=== PATIENT | female | born 1945 | race Caucasian/White ===

== ENCOUNTER 2016-08-04 18:09 | Observation (INO) | payer MEDICARE, OTHER ==
--- NOTE | 2016-08-04 20:03 | RAD ---
INDICATION: Recent right hemorrhagic CVA COMPARISON: MRI brain July 23, 2016 TECHNIQUE: Noncontrast axial source images were acquired from the skull base to the vertex. FINDINGS: Ventricles/sulci: The ventricles and cisterns are normal in size and configuration for age. Brain parenchyma: There is temporoparietal encephalomalacia consistent with the clinical history of prior infarct. There are left-sided lacunar type infarcts. There are no acute brain parenchymal findings. Intracranial hemorrhage:None. Extra-axial spaces: There are no abnormal extra axial fluid collections or evidence of extra-axial mass. Calvarium: Right temporoparietal craniotomy defect. Scalp: There is no evidence of scalp or extracalvarial soft tissue abnormality. Paranasal sinuses/mastoid: The paranasal sinuses and mastoid air cells are clear. Other: None. IMPRESSION: RIGHT TEMPORAL AND PARIETAL ENCEPHALOMALACIA WITH PRIOR RIGHT-SIDED CRANIOTOMY. NO ACUTE CRANIAL FINDINGS.
[2016-08-04] MEDS ORDERED: Dextrose 50% Syringe 50 ML* 25 GM/50 ML SYRINGE IV PUSH PRN (21:56)
--- NOTE | 2016-08-04 22:50 | ED ---
Cale Zacarias Aidan, scribed for Rigo Osborn MD on 08/04/16 at 1935 . Lower Extremity - HPI Summary HPI Summary: 70 y/o female presents to the ED with a complaint of an acute, moderate episode of difficulty walking that occurred just over an hour ago. She believes that she may have suffered from a stroke. On 07/22/16 while on a trip in [place], she had a stroke, during which she could not move her leg. Associated symptoms include right-sided weakness that has persisted for most of today. According to the patient's daughter, she has been speaking with slightly slurred speech. 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 was mentioned Onset/Duration: Minutes Severity Initially: Moderate Severity Currently: Mild Pain Intensity: 0 Pain Scale Used: 0-10 Numeric Timing: Intermittent, Lasting Minutes Location: Is Discrete @ - lower extremity Associated Signs And Symptoms: Positive: Other - right-sided weakness, slightly slurred speech (according to daughter) Aggravating Factor(s): Other - unknown Alleviating Factor(s): Other - unknown Able to Bear Weight: Yes - Allergies/Home Medications Allergies/Adverse Reactions: Allergies Allergy/AdvReac Type Severity Reaction Status Date / Time Cyclophosphamide Allergy Swelling Verified 08/04/16 20:52 [From Cytoxan Lyophilized] prednisone Allergy Swelling Uncoded 08/04/16 20:52 Home Medications: Home Medications Aspirin [Aspirin 81 MG TAB] 81 mg PO DAILY 08/04/16 [History Confirmed 08/04/16] Atorvastatin* [Lipitor*] 20 mg PO 1700 08/04/16 [History Confirmed 08/04/16] Citalopram TAB* [CeleXA TAB*] 20 mg PO DAILY 08/04/16 [History Confirmed ] Cyanocobalamin TAB* [Vitamin B12 TAB*] 1,000 mcg PO DAILY 08/04/16 [History Confirmed 08/04/16] Dipyridamole/Aspirin 25/200* [Aggrenox 25/200*] 1 cap.er PO BID 08/04/16 [ History Confirmed 08/04/16] Esomeprazole Magnesium [Nexium] 40 mg PO DAILY 08/04/16 [History Confirmed 08/04] Furosemide TAB* [Lasix TAB*] 40 mg PO DAILY 08/04/16 [History Confirmed 08/04/16 ] Insulin REGULAR(*) 0 units SUBCUT ONCE 08/04/16 [History Confirmed 08/04/16] Levothyroxine TAB* [Synthroid TAB*] 75 mcg PO 0800 08/04/16 [History Confirmed 08/04/16] Lisinopril TAB* [Prinivil TAB*] 10 mg PO DAILY 08/04/16 [History Confirmed 08/04] Pregabalin CAP(*) [Lyrica CAP(*)] 100 mg PO TID 08/04/16 [History Confirmed ] metFORMIN* [Glucophage 500 MG TAB *] 500 mg PO DAILY 08/04/16 [History Confirmed 08/04/16] PMH/Surg Hx/FS Hx/Imm Hx Infectious Disease History: Reports: Traveled Outside the [place] in Last 30 Days - [place] - Family History Known Family History: Positive: Hypertension - Social History Occupation: Unemployed Lives: With Family Alcohol Use: None Substance Use Type: Reports: None Smoking Status (MU): Never Smoked Tobacco Review of Systems Constitutional: Negative Eyes: Negative ENT: Negative Cardiovascular: Negative Respiratory: Negative Gastrointestinal: Negative Genitourinary: Negative Musculoskeletal: Negative Skin: Negative Neurological: Other - episode of difficulty walking/ possible stroke Positive: Weakness - right-sided weakness, Slurred Speech. Negative: Headache, Paresthesia, Numbness, Syncope Psychological: Normal All Other Systems Reviewed And Are Negative: Yes Physical Exam Triage Information Reviewed: Yes Vital Signs On Initial Exam: Initial Vitals Temp Pulse Resp BP Pulse Ox 97.0 F 48 14 182/57 100 08/04/16 18:36 08/04/16 18:36 08/04/16 18:36 08/04/16 18:36 08/04/16 18:36 Vital Signs Reviewed: Yes Appearance: Positive: Well-Appearing, No Pain Distress Skin: Positive: Warm, Skin Color Reflects Adequate Perfusion, Dry Head/Face: Positive: Normal Head/Face Inspection Eyes: Positive: Normal ENT: Positive: Normal ENT inspection Neck: Positive: Supple, Nontender Respiratory/Lung Sounds: Positive: Clear to Auscultation, Breath Sounds Present Cardiovascular: Positive: RRR Abdomen Description: Positive: Nontender, Soft Bowel Sounds: Positive: Present Musculoskeletal: Positive: Normal Neurological: Positive: Normal, Alert, Oriented to Person Place, Time, CN Intact II-III, Other - the patient is unable to move her right leg Psychiatric: Positive: Affect/Mood Appropriate Diagnostics - Vital Signs Vital Signs Temp Pulse Resp BP Pulse Ox 08/04/16 18:36 97.0 F 48 14 182/57 100 - Laboratory Lab Statement: Any lab studies that have been ordered have been reviewed, and results considered in the medical decision making process. - CT BRAIN CT CT Interpretation: Positive (See Comments) - IMPRESSION: RIGHT TEMPORAL AND PARIETAL ENCEPHALOMALACIA WITH PRIOR RIGHT-SIDED CRANIOTOMY. NO ACUTE CRANIAL FINDINGS. CT Interpretation Completed By: Radiologist - EKG EKG 1848 Cardiac Rate: Bradycardia - 50 BPM EKG Rhythm: Sinus Bradycardia EKG Interpretation: SINUS BRADYCARDIA, LOW VOLTAGE National Institutes Of Health - NIH Scale Level of Consciousness: Alert/Keenly Responsive - Pt was unable to move her right leg Ask Patient the Month and His/Her Age: Both Correct Ask Pt to Open/Close Eyes and Jacquard Lace Weaver/Release Non-Paretic Hand: Both Correctly Best Gaze (Only Horizontal Eye Movement): Normal Visual Field Testing: No Visual Loss Facial Paresis-Pt to Smile & Close Eyes or Grimace Symmetry: Normal/Symmetrical Motor Function - Right Arm: No Drift-Holds 10 Seconds Motor Function - Left Arm: No Drift-Holds 10 Seconds Motor Function - Right Leg: No Effort Against Drake Motor Function - Left Leg: No Drift-Holds 10 Seconds Limb Ataxia-Must be out of Proportion to Weakness Present: Absent Sensory (Use Pinprick to Test Arms/Legs/Trunk/Face): Normal Best Language (Describe Picture, Name Items): No Aphasia Dysarthria (Read Several Words): Normal Extinction and Inattention: No Abnormality Total Score: 3 Lower Extremity Course/Dx - Course Course Of Treatment: This is a 70 y/o female presenting with possible CVA. She had an episode today of difficulty walking and believes that she may have had a stroke. On 07/22/16, she had a stroke while in [place], during witch she could not move her legs. On examination, she was unable to move her right leg. Brain CT did not indicate any acute findings. EKG at 1848 indicated sinus bradycardia. - Diagnoses Provider Diagnoses: CVA (cerebral vascular accident) - Physician Notifications Discussed Care of Patient With: Dr. May (Hospitalist) Time Discussed With Above Provider: 20:30 - Dr. Osborn discussed the patient's care with the hospitalist. Discharge - Discharge Plan Condition: Stable Disposition: ADMITTED TO [facility] documentation as recorded by the Cale cooper Aidan accurately reflects the service I personally performed and the decisions made by , Rigo Osborn MD.
--- NOTE | 2016-08-04 23:02 | CONS ---
INPATIENT PHYSICAL MEDICINE AND REHABILITATION CONSULT NOTE: DATE OF CONSULT: 08/04/16 REASON FOR CONSULT: Left-sided lacunar stroke with right hemiparesis. REFERRING PHYSICIAN: The hospitalist service. HISTORY OF ILLNESS: Rita Witt is a 70-year-old female. She has a medical history significant for a fall, which occurred 10 years ago in which she struck her head. She had to have a craniotomy and evacuation of a hematoma. She apparently had seizures following that. She also has a history of peripheral neuropathy. 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 That is by report. She takes Lyrica for the peripheral neuropathy. The patient was visiting her daughter in [place]. They were touring a cemetery in [place] and when she came out of the cemetery, she said she had trouble moving her right leg. The right leg weakness became more severe. She went to a hospital in [facility]. She was worked up with a CAT scan. She was diagnosed with a subcortical stroke. The patient's symptoms stabilized after worsening for 1 to 2 days. It was recommended that the patient take Aggrenox twice a day after discharge. The patient was cleared to fly back home to [facility] on 07/31/16. Apparently, she boarded an airplane on 08/02/16 and got back to [place] today. She presented to our emergency room where she was admitted for OBV status. She did have a CAT scan in the emergency room because she was complaining of severe headache. No new intracranial pathology was detected. I am asked to see her in consultation regarding her rehab needs. PAST MEDICAL HISTORY: Includes the aforementioned traumatic brain injury with subdural hematoma. She has a history of hypothyroidism, peripheral neuropathy, which is thought to be a large fiber neuropathy. She has memory problems as a result of her head injury. She had a colostomy in 2007. She has a history of diabetes as well. The diabetes could very well be the cause of her neuropathy. CURRENT MEDICATIONS: Include: 1. Aggrenox. 2. Lipitor. 3. L-Thyroxine. 4. Metformin. 5. She is on vitamin B12. 6. Insulin. 7. Lisinopril. 8. Lyrica. 9. Celexa. 10. Nexium. ALLERGIES: She is allergic to CYTOXAN and PREDNISONE. SOCIAL HISTORY: She is a nonsmoker, nondrinker. She lives by herself. She lives in a house. There is a ramp outside the house. She does have a daughter living locally. REVIEW OF SYSTEMS: The patient reports no current shortness of breath or chest pain. PHYSICAL EXAM: The patient's temperature is 96.7, blood pressure is 179/69, pulse 52, respirations 18. HEENT: She has a right facial palsy. Her tongue appears to be midline. She does have dysarthria present. Her neck is supple with no lymphadenopathy. Lungs: Sounded clear to auscultation bilaterally. Heart: Sounds regular. S1 and S2 are audible. Abdomen: Soft and nontender. Extremities: She may have had slight atrophy in her intrinsic muscles of her feet. Neurologic Exam: The patient sensation was diminished particularly in her feet. Her muscle strength was about 4+/5 on the left side, about 4/5 on the right side that was the upper extremity. Hand manager asset management was about 3/5, dorsiflexion in the right leg was about 2+/5, hip flexion 3/5, quadriceps about 3/5. Hamstrings were roughly 3/5, plantarflexion 3/5. Functional Exam: The patient transfers with moderate amount of assistance. ASSESSMENT: Lacunar stroke with right hemiparesis. PLAN: I believe the patient would benefit from an acute rehabilitation. She has clear needs in Physical Therapy, Occupational Therapy, and Speech Therapy. She is able to do 3 hours of therapy a day. In addition, her medical comorbidities including a previous hemorrhage in her brain as well as a peripheral neuropathy require ongoing medical supervision. In addition, she has a history of pernicious anemia, which may also be contributing to her neuropathy. She has a history of seizures in the past and I think this also requires ongoing monitoring by a physician. Therefore, I recommended acute rehabilitation. She would benefit from and be able to participate in 3 hours of therapy a day split among the disciplines of Physical Therapy, Occupational Therapy, and Speech Therapy. [id number]/[facility] #: [id number] [place]
[2016-08-05] MEDS ORDERED: Acetaminophen TAB* 325 MG PO PRN (00:19)
[2016-08-05] MEDS ORDERED: hydrALAZINE IV* 20 MG/ML VIAL IV SLOW PU PRN (00:40)
--- NOTE | 2016-08-05 02:45 | HP ---
HISTORY AND PHYSICAL: DATE OF ADMISSION: 08/04/16 PRIMARY CARE PROVIDER: Jozef Og MD ATTENDING PHYSICIAN: Rachel May DO* (report dictated by Sofi Adorno NP) CHIEF COMPLAINT: Headache post cerebrovascular accident. HISTORY OF PRESENT ILLNESS: Ms. Witt is a 70-year-old female with past medical history significant for traumatic what sounds like subdural hematoma status post craniotomy, seizure disorder following the head injury, peripheral neuropathy, hypothyroidism, and Renetta granulomatosis, and diabetes mellitus, who was visiting her daughter in [place]. Two days after the patient arrived, she was on a tour, she developed right leg weakness, seen in the hospital in [facility]. She underwent a CT scan with a diagnosis of left subcortical cerebrovascular accident. This occurred on 07/22/16. The patient was cleared to fly back home to the on 07/31/16. The patient got on a plane and arrived back via plane in [place] today. The patient states that while on the flight, she developed a headache. She reports that her right-sided weakness is her baseline that has been since her stroke. She reports taking Tylenol prior to her arrival and that headache is gone. Her son reports that the patient may have had slurred speech in flight, but the patient's family is not here to confirm this. The patient denies any changes in her neurological status. While in the emergency room, the patient had a head CT showing a right temporal and parietal encephalomalacia with prior right-sided craniotomy. No acute cranial findings. The patient also had an EKG showing a sinus bradycardia and a rate of 50 and there is no previous EKGs for comparison. The patient denies fever, chills, chest pain, shortness of breath, nausea, vomiting, or diarrhea. She denies urinary symptoms, lightheadedness, or dizziness. The patient denies any changes in her neurological symptoms such as increased weakness or slurred speech. PAST MEDICAL HISTORY: 1. Left subcortical stroke on 07/23/16. 2. Hypertension. 3. Diabetes mellitus. 4. Peripheral neuropathy. 5. Hemorrhagic subdural hematoma. 6. Diverticulitis. 7. Seizure disorder after subdural hematoma. PAST SURGICAL HISTORY: 1. Status post craniotomy. 2. Status post right total hip arthroplasty. 3. Status post colostomy placement. MEDICATIONS: Home medications include: 1. Aggrenox 25/200 mg 1 capsule oral twice daily. 2. Atorvastatin 20 mg oral daily. 3. L-thyroxine 75 mcg oral daily. 4. Metformin 500 mg oral daily. 5. Vitamin B12 1000 mcg oral daily. 6. Regular insulin 1 to 10 subcutaneous. 7. Furosemide 40 mg oral daily. 8. Lisinopril 10 mg oral daily. 9. Nexium 40 mg oral daily. 10. Citalopram 20 mg oral daily. 11. Lyrica 100 mg oral 3 times daily. ALLERGIES: Include PREDNISONE causes swelling and CYCLOPHOSPHAMIDE. FAMILY HISTORY: The patient reports her mother had a history of heart disease. She denies family history of diabetes mellitus. The patient's father had a history of colon cancer. SOCIAL HISTORY: The patient denies tobacco, alcohol, or recreational drug use. The patient's , Jozef Witt, will be surrogate decision maker in the event that she is unable to make decisions for herself. REVIEW OF SYSTEMS: I performed a 14-point review of systems. All the pertinent positives and negatives are mentioned in the history of present illness. The remaining review of systems is negative. PHYSICAL EXAMINATION GENERAL APPEARANCE: The patient is alert, pleasant, and appears to be in no acute distress. VITAL SIGNS: Temperature 96.7, heart rate 52, respiratory rate 18, O2 sat 97% on room air, and blood pressure 179/69. HEENT: Normocephalic, atraumatic. Pupils are equal and reactive to light. Extraocular movements are intact. RESPIRATORY: There is no accessory muscle use and the lungs are clear to auscultation bilateral. CARDIOVASCULAR: Regular rate and rhythm. S1 and S2 present. There are no murmurs, rubs, or gallops heard. ABDOMEN: Soft, nontender, and nondistended. There are bowel sounds present x4. EXTREMITIES: There is no lower extremity edema. DP and PT pulses are 2+ and symmetric. MUSCULOSKELETAL: There is no clubbing or cyanosis noted. The patient has equal handgrips, bilateral. The patient is unable to lift her right leg, but has strong dorsiflexion and plantar flexion bilateral. The patient is noted to have a slight right-sided facial droop. The patient has decreased sensation in bilateral lower extremities. NEUROLOGICAL: The patient is alert and oriented x4. Cranial nerves II through XII are grossly intact. PSYCHOLOGICAL: The patient is calm and cooperative. SKIN: There are no rashes or abnormalities seen. DIAGNOSTIC STUDIES/LAB DATA: EKG shows a sinus bradycardia and a rate of 50. There are no previous EKGs for comparison. There are no acute signs of ischemia. Brain CT from today. Radiologist's impression: Right temporal and parietal encephalomalacia with prior right-sided craniotomy. No acute cranial findings. IMPRESSION: Ms. Witt is a 70-year-old female with past medical history significant for history of subdural hematoma status post craniotomy and seizures post craniotomy, hypertension, diabetes mellitus, and status post left subcortical CVA on July 23 who presented to the emergency room with complaints of headache post stroke. She will be admitted under observation for post cerebrovascular accident and accelerated hypertension. ASSESSMENT AND PLAN: 1. Post cerebrovascular accident: The patient will have a physical therapy and occupational therapy evaluation. We will do neuro checks q.4 hours. The patient is almost 2 weeks post stroke. I do not feel she needs to be monitored on telemetry at this time. She will be continued on Aggrenox and hopefully, she can get into an acute or subacute rehab. 2. Accelerated hypertension: It appears that since the patient was in [facility] , she has been on 10 mg of lisinopril and 40 mg of furosemide. We will increase the patient's lisinopril to 20 mg daily. It is to note that it appears that the patient was on atenolol 100 mg oral daily. We will get the patient's medical records to confirm with her primary care doctor what her medications were prior to her visit to [facility]. 3. Hyperlipidemia: The patient will be continued on atorvastatin. 4. Hypothyroidism: The patient will be continued on levothyroxine. 5. Gastroesophageal reflux disease: For now, we will continue the patient on Nexium, although it appears that she may have been on omeprazole 20 mg oral twice daily. Again, we will get her primary care records to assist us in determining some of her correct medications. 6. Diabetes mellitus: We will hold the patient's metformin. We will do fingersticks a.c. and h.s. and place her on a lispro sliding scale coverage for now. 7. Seizure disorder: The patient is not currently on medications and they are not listed on med list from [facility]. It appears according to pharmacy records that the patient was on Keppra 500 mg twice daily. Again, we will get the patient's medical records and resume accordingly. 8. Fluids, electrolytes, and nutrition: The patient will be on a consistent carbohydrate diet. 9. Code status: Do not resuscitate. A MOLST form has been filled out. 10. DVT prophylaxis: The patient is at highest risk, will be on subcu heparin and SCDs. 11. Disposition: Observation. TIME SPENT: Time for this admission was 70 minutes and approximately half of that was spent with the patient, discussing medications, past medical history, and the events leading up to her today and performing a physical examination. Additional time was also spent reviewing the patient's medical records from [facility]. The case has been discussed with the attending, Dr. May, who agrees with the plan of care. SOFI ADORNO NP CC: Jozef Og MD * [id number]/[facility] #: [id number] [place]
[2016-08-05] MEDS: Heparin VIAL(*) 5000 UNITS/ML VIAL (FIVE THOUSAND) SUBCUT SCH ×2 (05:25→14:47)
[2016-08-05] MEDS ORDERED: Levothyroxine TAB* 75 MCG TAB PO SCH (06:00)
[2016-08-05] MEDS: Pregabalin CAP(*) 100 MG PO SCH ×2 (07:48→14:47)
[2016-08-05] MEDS: Insulin LISPRO* 1 UNITS UNIT SUBCUT SCH ×2 (07:49→12:13)
[2016-08-05] MEDS ORDERED: Dipyridamole/Aspirin 25/200* CAP.ER PO SCH (09:00)
[2016-08-05] MEDS ORDERED: Cyanocobalamin TAB* 500 MCG PO SCH (09:00)
[2016-08-05] MEDS ORDERED: Lisinopril TAB* 10 MG PO SCH (09:00)
[2016-08-05] MEDS ORDERED: Furosemide TAB* 40 MG PO SCH (09:00)
[2016-08-05] MEDS ORDERED: Citalopram TAB* 20 MG PO SCH (09:00)
[2016-08-05 12:14] VITALS: BP 170/76
--- NOTE | 2016-08-05 13:19 | PN ---
Subjective Date of Service: 08/05/16 Interval History: Patient seen and examined at bedside. She is OOB to chair. She denies CP, SOB, abd pain, n/v, fever/chills. She reports a mild BUNN. She reports that her speech and right arm weakness feels the same. She is eager to go to [facility] so she can get back home. No other acute concerns at this time. Family History: Unchanged from Admission Social History: Unchanged from Admission Past Medical History: Unchanged from Admission Objective Active Medications: Acetaminophen (Tylenol Tab*) 650 mg PO Q4H PRN PRN Reason: PAIN Atorvastatin Calcium (Lipitor*) 20 mg PO 1700 [facility] Citalopram Hydrobromide (Celexa Tab*) 20 mg PO DAILY [facility] Last Admin: 08/05/16 07:47 Dose: 20 mg Cyanocobalamin (Vitamin B12 Tab*) 1,000 mcg PO DAILY [facility] Last Admin: 08/05/16 07:48 Dose: 1,000 mcg Dextrose (D50w Syringe 50 Ml*) 12.5 gm IV PUSH .FOR FS < 60 - SS PRN PRN Reason: FS < 60 Dipyridamole/Aspirin (Aggrenox 25/200*) 1 cap.er PO BID [facility] Last Admin: 08/05/16 07:48 Dose: 1 cap.er Furosemide (Lasix Tab*) 40 mg PO DAILY [facility] Last Admin: 08/05/16 07:48 Dose: 40 mg Heparin Sodium (Porcine) (Heparin Vial(*)) 5,000 units SUBCUT Q8HR [facility] Last Admin: 08/05/16 05:25 Dose: 5,000 units Hydralazine HCl (Apresoline Iv*) 5 mg IV SLOW PU Q6H PRN PRN Reason: BLOOD PRESSURE Last Admin: 08/05/16 07:46 Dose: 5 mg Insulin Human Lispro (Humalog*) 0 - 10 units SUBCUT AC [facility] PRN Reason: Protocol Last Admin: 08/05/16 12:13 Dose: Not Given Levothyroxine Sodium (Synthroid Tab*) 75 mcg PO 0600 [facility] Last Admin: 08/05/16 05:25 Dose: 75 mcg Lisinopril (Prinivil Tab*) 20 mg PO DAILY [facility] Last Admin: 08/05/16 07:48 Dose: 20 mg Pregabalin (Lyrica Cap(*)) 100 mg PO TID JANUARY Last Admin: 08/05/16 07:48 Dose: 100 mg Vital Signs 08/04/16 08/04/16 08/04/16 21:30 22:00 22:30 Temperature Pulse Rate 54 49 51 Respiratory 14 15 15 Rate Blood Pressure 185/63 171/55 154/55 (mmHg) O2 Sat by Pulse 97 95 93 Oximetry 08/04/16 08/05/16 08/05/16 23:20 03:49 07:19 Temperature 97.4 F 97.8 F 97.7 F Pulse Rate 54 91 70 Respiratory 17 16 16 Rate Blood Pressure 168/47 155/96 187/70 (mmHg) O2 Sat by Pulse 100 97 99 Oximetry 08/05/16 08/05/16 08/05/16 07:48 08:00 09:48 Temperature Pulse Rate Respiratory 16 16 16 Rate Blood Pressure (mmHg) O2 Sat by Pulse Oximetry 08/05/16 08/05/16 11:01 12:00 Temperature 98.1 F Pulse Rate 70 Respiratory 14 Rate Blood Pressure 138/79 170/76 (mmHg) O2 Sat by Pulse 100 Oximetry Oxygen Devices in Use Now: None Appearance: Older female, OOB to chair, NAD Eyes: PERRLA Ears/Nose/Mouth/Throat: Mucous Membranes Moist Neck: NL Appearance and Movements; NL JVP Respiratory: Symmetrical Chest Expansion and Respiratory Effort, Clear to Auscultation Cardiovascular: NL Sounds; No Murmurs; No JVD, RRR Abdominal: NL Sounds; No Tenderness; No Distention Extremities: - - trace BLE edema Neurological: Alert and Oriented x 3, - - right facial droop, right sided hemiparesis Lines/Tubes/Other Access: Clean, Dry and Intact Peripheral IV Nutrition: Taking PO's Assess/Plan/Problems-Billing Assessment: - Patient Problems (1) CVA (cerebral vascular accident) Code(s): I63.9 - CEREBRAL INFARCTION, UNSPECIFIED Comment: Patient s/p left subcortical CVA on 07/23/16 while on vacation in [place]. With residual right hemiparesis Continue BP control and Aggrenox. Plan for [facility], pending insurance approval. (2) HTN (hypertension) Code(s): I10 - ESSENTIAL (PRIMARY) HYPERTENSION Comment: Manual BP needed for best reads. Patient's BP is variable, with SBP ranging from 130s-180s Continue home atenolol, lisinopril, and furosemide. PRN hydralazine (3) Diabetes mellitus Code(s): E11.9 - TYPE 2 DIABETES MELLITUS WITHOUT COMPLICATIONS Comment: Well controlled. Home metformin held. Continue Lispro SSI. (4) Peripheral neuropathy Code(s): G62.9 - POLYNEUROPATHY, UNSPECIFIED Comment: Continue pregabalin. (5) History of subdural hematoma Code(s): Z86.79 - PERSONAL HISTORY OF OTHER DISEASES OF THE CIRCULATORY SYSTEM Comment: s/p craniotomy (6) Seizure disorder Code(s): G40.909 - EPILEPSY, UNSP, NOT INTRACTABLE, WITHOUT STATUS EPILEPTICUS Comment: Appears secondary to subdural hematoma and craniotomy. Continue home Keppra. (7) DVT prophylaxis Code(s): XGO8364 - Comment: SQ heparin Status and Disposition: OBV admit. Possible transfer to [facility] today.
[2016-08-05] MEDS ORDERED: levETIRAcetam TAB* 500 MG PO SCH (14:18)
[2016-08-05] MEDS ORDERED: Atenolol TAB* 50 MG PO SCH (14:30)
[2016-08-05] MEDS ORDERED: Atorvastatin* 20 MG TAB PO SCH (17:00)
--- NOTE | 2016-08-06 14:51 | DS ---
MEDICINE DISCHARGE SUMMARY: DATE OF ADMISSION: 08/04/16 DATE OF DISCHARGE: 08/05/16 PCP: Jozef Og MD PROVIDER: Heather Solano NP ATTENDING PHYSICIAN: Isha Cavazos MD* (as dictated by Heather Solano NP). CONSULTING PHYSICIAN: Marco Tucker MD, [facility]. PRIMARY DISCHARGE DIAGNOSES: 1. Postcerebrovascular accident. 2. Hypertension. SECONDARY DISCHARGE DIAGNOSES: 1. History of left subcortical stroke on 07/23/16. 2. Diabetes mellitus. 3. Peripheral neuropathy. 4. Hemorrhagic subdural hematoma. 5. Diverticulitis. 6. Seizure disorder after subdural hematoma. MEDICATIONS AT DISCHARGE: 1. Keppra 500 mg b.i.d. 2. Atenolol 100 mg daily. 3. Regular insulin sliding scale. 4. Lyrica 100 mg t.i.d. 5. Lisinopril 10 mg daily, now increased to 20 mg daily. 6. Furosemide 40 mg daily. 7. Vitamin B12 1000 mcg daily. 8. Celexa 20 mg daily. 9. Nexium 40 mg daily. 10. Aggrenox 25/200 one capsule b.i.d. 11. Lipitor 20 mg daily. 12. Aspirin 81 mg daily. HOSPITAL COURSE OF STAY: For full details, please refer to the full medical record in the H and P provided by Shama Vazquez NP. In summary, Ms. Witt is a 70-year-old female who was recently in [place] earlier this July. On 07/22/16, the patient was on a tour and developed right leg weakness and was seen in the hospital in [place]. She was evaluated and treated in the hospital there and underwent a CT scan and was diagnosed with a left subcortical cerebrovascular accident on 07/22/16. The patient stayed in [place] and was cleared to fly back home to the [facility] on 07/31/16. She traveled back to [place] shortly thereafter on 08/03/16 and got back to [place] on 08/04/16. While on the flight, the patient developed a headache. The patient's son expressed concern for slurred speech in flight. They came to the hospital for further evaluation. The patient did have a head CT here in the ER, which showed a right temporal and parietal encephalomalacia with prior right-sided craniotomy. The patient also showed left-sided lacunar infarct. Her EKG showed a sinus bradycardia. The patient was admitted for observation and received a PT and OT evaluation. Dr. Tucker saw the patient in consultation as well. He did express that the patient would benefit from acute rehab and recommended the patient start PT and OT here in the hospital with a plan for a potential admission to [facility]. During her time upon the medicine floor, the patient was able to transfer with the staff. She is motivated to continue with these therapies in order to recover and return back home. She had no new complaints except for a mild headache when she awoke on 08/05/16. She reports no worsening or new deficits. Her blood pressures are still a little labile, thus concern for pressures in the 170s to 180s. However, there is notable difference between the patient's manual versus automatic blood pressures. Nursing staff was encouraged to take manual blood pressures. We did call the pharmacy to confirm the patient's medications. She is to be on Keppra, which we did reinitiate here as well as her atenolol which should help with her blood pressure control. No other acute concerns. CONCERNS AT DISCHARGE: Ms. Witt will be discharged to [facility] on 08/05/16. DIET: Heart healthy, consistent carbohydrate diet. ACTIVITY: As tolerated. CONDITION: Stable. DISPOSITION: To [facility]. TIME SPENT: Time spent on this discharge was approximately 40 minutes. Again, this is only a brief summary of the patient's hospital course of stay. For full details, please refer to the full medical record. If you have any further questions or need further assistance, please feel free to contact me at . HEATHER SOLANO NP CC: Jozef Og MD* [id number]/[facility] #: [id number] LEONIDAS
== END 2016-08-05 14:50 ==
LOC: ED 18:09 → MEDTELE 21:09 → UNDOADMOB 21:47 → MEDTELE 21:47
PROVIDERS: ADMIT Hospitalist; ATTEND Internal Medicine
DX: I63.9 Cerebral infarction, unspecified (principal); G81.91 Hemiplegia, unspecified affecting right dominant side; I10 Essential (primary) hypertension; E11.9 Type 2 diabetes mellitus without complications; G62.9 Polyneuropathy, unspecified; G40.909 Epilepsy, unspecified, not intractable, without status epilepticus; K21.9 Gastro-esophageal reflux disease without esophagitis; E03.9 Hypothyroidism, unspecified; R00.1 Bradycardia, unspecified; Z79.4 Long term (current) use of insulin; Z79.84 Long term (current) use of oral hypoglycemic drugs; Z79.899 Other long term (current) drug therapy; Z88.8 Allergy status to other drugs, medicaments and biological substances
CPT/HCPCS: 70450; 93005; 96372; 99283; A9270-GY; G0378; G8978-GP-CL; G8979-GP-CI; G8980-GP-CL; G8987-GO-CL; G8988-GO-CI; J0360; J1644

== ENCOUNTER 2016-08-05 13:05 | Inpatient (IN) | payer MEDICARE ==
[2016-08-05] MEDS ORDERED: Acetaminophen TAB* 325 MG PO PRN (16:34)
[2016-08-05] MEDS ORDERED: Senna TAB PO PRN (16:34)
[2016-08-05] MEDS ORDERED: Magnesium Hydroxide LIQ* 30 ML UDC PO PRN (16:34)
[2016-08-05] MEDS ORDERED: Bisacodyl SUPP* 10 MG SUPP PR PRN (16:34)
[2016-08-05] MEDS ORDERED: Dextrose 50% Syringe 50 ML* 25 GM/50 ML SYRINGE IV PUSH PRN (16:45)
[2016-08-05] MEDS: metFORMIN* 500 MG TAB PO SCH (17:10)
[2016-08-05] MEDS: Atorvastatin* 20 MG TAB PO SCH (17:10)
[2016-08-05] MEDS: Pregabalin CAP(*) 50 MG PO SCH (20:37)
[2016-08-05] MEDS: Docusate CAP* 100 MG PO SCH (20:37)
[2016-08-05] MEDS: Insulin LISPRO* 1 UNITS UNIT SUBCUT SCH (20:38)
[2016-08-05] MEDS: Dipyridamole/Aspirin 25/200* CAP.ER PO SCH (20:38)
[2016-08-05] MEDS ORDERED: Insulin LISPRO* 1 UNITS UNIT SUBCUT SCH (21:00)
[2016-08-05] MEDS: Heparin VIAL(*) 5000 UNITS/ML VIAL (FIVE THOUSAND) SUBCUT SCH (22:22)
--- NOTE | 2016-08-06 03:25 | HP ---
ADMISSION HISTORY AND PHYSICAL: DATE OF ADMISSION: 08/05/16 REASON FOR ADMISSION: Left-sided stroke with right hemiparesis. HISTORY OF PRESENT ILLNESS: Rita Witt is a 70-year-old female. The patient has a medical history significant for diabetes mellitus as well as having peripheral neuropathy, which is secondary to previous heavy alcohol use and diabetes. Hypothyroidism probably contributes as well. In addition, the patient had a fall 10 year ago. She struck her head and had to have a craniotomy and evacuation of a hematoma. She has had difficulties with her balance since that time. The patient was visiting her daughter in [place]. They were touring a cemetery in [place]. When the patient ambulated out of the cemetery, she had trouble moving her right leg. The right leg weakness progressed. She went to a hospital in [facility]. She had a workup at the hospital including a CAT scan. She was diagnosed with a subcortical stroke. The patient's symptoms stabilized after worsening for 1 to 2 days. The patient was started on Aggrenox secondary to stroke prevention. She boarded an airplane on August 02 after having had the stroke on July 23. She returned to [place] and she was seen in the emergency room last night. She was admitted as an OBV patient. She was having a severe headache. A CAT scan of her brain did not reveal any new findings. The date of her stroke again was 07/23/16. The patient was evaluated by me last night. She was felt to have Physical Therapy, Occupational Therapy needs as well as Speech Therapy needs. She is now being admitted for inpatient rehab so that she might return to independent living. PAST MEDICAL HISTORY: Includes the aforementioned diabetes, peripheral neuropathy, hypothyroidism, and brain injury. She also has a history of osteoporosis, pernicious anemia, and hypertension. As mentioned earlier, she is also a recovering alcoholic. MEDICATIONS: The patient's current medications include: 1. Lipitor. 2. Celexa. 3. Aggrenox. 4. Lasix. 5. Lispro insulin. 6. Synthroid. 7. Lisinopril. 8. Lyrica. ALLERGIES: The patient has allergies listed to CYCLOPHOSPHAMIDE and PREDNISONE. SOCIAL HISTORY: She is a nonsmoker, nondrinker. Lives with her in a split story ranch house in [place]. She does have an electric wheelchair at home, which she got after her brain injury and had balance difficulties. She was ambulatory prior to admission. REVIEW OF SYSTEMS: The patient reports no current shortness of breath or chest pain. PHYSICAL EXAMINATION VITAL SIGNS: The patient's temperature is 98.1, blood pressure is 154/62, pulse 64, respirations 16. HEENT: Her extraocular movements appear to be intact. She has a right facial palsy. She has a dysarthria when she speaks. NECK: Supple. LUNGS: Sounded clear to auscultation bilaterally. HEART: Sounds are regular. S1, S2 are audible. ABDOMEN: Soft and nontender. EXTREMITIES: She had slightly decreased tone in her right arm and right leg. Her peripheral pulses were intact. NEUROLOGIC: The patient was awake, alert, oriented. Muscle strength in the right side, her right arm was grossly 3/5. 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 Her right leg, hip flexion was about 3/5, quadriceps 3/5, hamstrings 3/5, plantar flexion 3/5, dorsiflexion about 2/5. Left side was roughly 4+ to 5/5 throughout. FUNCTIONAL EXAM: She transfers with moderate amount of assistance. ASSESSMENT: Lacunar stroke with right hemiparesis. PLAN: We are going to integrate her into a comprehensive and therapeutic rehab program on the following goals: 1. Physical Therapy will work with the patient. They are going to work on functional transfer training and ambulation training with a walker. 2. Occupational Therapy will see the patient and work on her activities of daily living including toileting and toilet transfers. 3. Speech Therapy will see the patient. Work on her dysarthria. 4. Heparin for DVT prophylaxis. 5. Continue Synthroid for hypothyroidism. 6. We will continue lisinopril for her blood pressure problems. 7. Continue Aggrenox and Lipitor for secondary stroke prevention. 8. Continue Lyrica for peripheral neuropathy. 9. guest services representative will be closely involved to make sure that any services and equipment that the patient requires are in place prior to discharge. 10. For diabetes, we are going to continue fingersticks with appropriate insulin coverage. We are going to restart her Glucophage. 11. SSRI's - she is already on Celexa. We may switch her over to Prozac. 12. Family training as appropriate with stroke education. 13. Advance directives: The patient has requested DNR status. She does have a MOLST form. 14. Continue the patient on omeprazole. 15. Home with appropriate services. ESTIMATED LENGTH OF STAY: 3 weeks. [id number]/[facility] #: [id number] LEONIDAS
[2016-08-06] MEDS: Levothyroxine TAB* 75 MCG TAB PO SCH (05:21)
[2016-08-06] MEDS: Omeprazole CAP* 20 MG PO SCH (05:21)
[2016-08-06] MEDS: Heparin VIAL(*) 5000 UNITS/ML VIAL (FIVE THOUSAND) SUBCUT SCH ×3 (05:30→21:44)
[2016-08-06] MEDS: Insulin LISPRO* 1 UNITS UNIT SUBCUT SCH ×4 (08:23→20:14)
[2016-08-06] MEDS: Pregabalin CAP(*) 50 MG PO SCH ×3 (09:32→20:08)
[2016-08-06] MEDS: Lisinopril TAB* 10 MG PO SCH (09:33)
[2016-08-06] MEDS: Furosemide TAB* 40 MG PO SCH (09:33)
[2016-08-06] MEDS: Citalopram TAB* 20 MG PO SCH (09:34)
[2016-08-06] MEDS: Docusate CAP* 100 MG PO SCH ×2 (09:34→20:09)
[2016-08-06] MEDS: Cyanocobalamin TAB* 500 MCG PO SCH (09:34)
[2016-08-06] MEDS: Dipyridamole/Aspirin 25/200* CAP.ER PO SCH ×2 (09:34→20:08)
--- NOTE | 2016-08-06 12:39 | PMRUTEAM ---
PMRU: Goals Current Status: Nursing: Current Status Skin Deviations [Right Abdomen Bruise ] Skin Deviation Description [ Colonostomy Right Abdomen] Physical Therapy: Current Status Bed Mobility Assistance Independent Transfer Moblility Assistance Contact guard Ambulation Assistance Contact guard 25 feet Ambulation Assistive Devices Rolling Walker Stairs Assistance Independent Stairs Recommended Devices Two Rails Number of Stairs 6 Social Work: Current Status Discharge Plan reutnr home with home care svs and family support Potential for Family Training pt's family is involved and supportive Anticipated Discharge Home Destination Discharge With home care svs and family support Nutrition: Current Status Monitoring new adm. Goals TBD. OCCUPATIONAL THERAPY: Set up UB dressing, Lower body dressing Min assist. CG Bathing. Toileting : CG. Toilet transfers: CG SPEECH THERAPY: 100% intelligible. Comprehension good. STM deficits which predate her CVA. Goals: Nutrition: Goals Intervention Goals TBD Speech: Goals Speech Goal 1 N/A evaluation only Goal 1 Comments Education: The patient was educated on memory strategies to assist with baseline memory deficits for which the patient stated and demonstrated use of 2 strategies independently which she used at home prior to hospitalization. The patient was educated on 2 additional strategies and demonstrated understanding and use. Written copy of memory strategies presented and left bedside for patient to refer to as needed. No skilled AD TRAFFICKER services warranted at this time. Social Work: Goals Discharge Plan reutnr home with home care svs and family support Potential for Family Training pt's family is involved and supportive Anticipated Discharge Home Destination Discharge With home care svs and family support Care Plan: Care Plan Cardiovascular- Improve/Maintain Start: 08/05/16 23:40 Freq: DAILY Status: Active Target: Activity Type Activity Date Activity User E-Sign Co-Sign Detail Recorded Client Recorded Date Recorded By Document 08/06/16 04:01 [id number] 08/06/16 04:02 [id number] 08/06/16 04:01 [facility] Outcome: Cardiovascular Vital Signs q Shift for 48hrs Then BID Yes Daily Weight Ordered No Current Cardiovascular Outcome/Goal Maintain/ Achieve Baseline HR, BP , Perfusion Free of Abnormal Cardiac Symptoms Communication-Improve/Maintain Start: 08/06/16 12:01 Freq: DAILY Status: Active Target: Activity Type Activity Date Activity User E-Sign Co-Sign Detail Recorded Client Recorded Date Recorded By Document 08/06/16 12:01 [id number] 08/06/16 12:04 [id number] 08/06/16 12:01 [facility] Outcome: Communication/Cognitive Status Outcome/Goals Makes Needs Known Effectively Outcome/Goals Met Comment Speech,language and cognitive- linguistic evaluation completed - The patients speech and language were unremarkable. The patient presented with baseline short term memory deficits from fall 10 years prior with subdural hematoma s/p craniotomy with evacuation. DVT Prophylaxis- Improve/Maintain Start: 08/05/16 23:40 Freq: DAILY Status: Active Target: Activity Type Activity Date Activity User E-Sign Co-Sign Detail Recorded Client Recorded Date Recorded By Document 08/06/16 04:01 [id number] 08/06/16 04:02 [id number] 08/06/16 04:01 [facility] Outcome: DVT Prophylaxis Outcome/Goals Remains Free of DVT TEDS Stockings on Every AM, Off at HS Discharge Planning - Improve/Maintain Start: 08/05/16 23:40 Freq: DAILY Status: Active Target: Activity Type Activity Date Activity User E-Sign Co-Sign Detail Recorded Client Recorded Date Recorded By Document 08/06/16 04:01 [id number] 08/06/16 04:02 [id number] 08/06/16 04:01 [facility] Outcome: Discharge Planning Outcome/Goals Demonstrates Understanding of Discharge Plan /GI-Improve/Maintain Start: 08/05/16 23:40 Freq: DAILY Status: Active Target: Activity Type Activity Date Activity User E-Sign Co-Sign Detail Recorded Client Recorded Date Recorded By Document 08/06/16 04:01 [id number] 08/06/16 04:02 [id number] 08/06/16 04:01 [facility] Outcome: Genitourinary/ Gastrointestinal Genitourinary- Outcome/Goals Maintain/ Achieve Urinary Continence Maintain/ Achieve Adequate Urinary Output Remain Free of Hospital- Acquired UTI Gastrointestinal-Outcome/Goals Maintain/ Achieve Bowel Regularity in Accordance with Pt's Baseline Remain Free of Emesis Prevent Constipation Progression Toward Outcome/Goals - Progressing Safety- Improve/Maintain Start: 08/05/16 23:40 Freq: DAILY Status: Active Target: Activity Type Activity Date Activity User E-Sign Co-Sign Detail Recorded Client Recorded Date Recorded By Document 08/06/16 04:01 [id number] 08/06/16 04:02 [id number] 08/06/16 04:01 [facility] Outcome: Safety Outcome/Goals Remain Free of Injury or Harm Cooperates with Safety Measures for Least Restrictive Environment Prevent Falls/ Injury Equipment Needed Progression Toward Outcome/Goals Progressing Outcome/Goals Met Comment PA in place Medicine Note: Length of Stay: 8 days Anticipated Discharge Destination: Home Tentative Discharge Date: 08/14/16 Discharged to: Home
[2016-08-06] MEDS: metFORMIN* 500 MG TAB PO SCH (17:25)
[2016-08-06] MEDS: Atorvastatin* 20 MG TAB PO SCH (17:25)
[2016-08-07] MEDS: Levothyroxine TAB* 75 MCG TAB PO SCH (04:53)
[2016-08-07] MEDS: Omeprazole CAP* 20 MG PO SCH (04:53)
[2016-08-07] MEDS: Heparin VIAL(*) 5000 UNITS/ML VIAL (FIVE THOUSAND) SUBCUT SCH ×3 (04:55→21:19)
[2016-08-07 06:36] LABS: Hematocrit 34 % (35-47); Mean Corpuscular HGB Conc 33 g/dl (31-36); Mean Corpuscular Hemoglobin 27 pg (27-31); Mean Corpuscular Volume 82 fL (80-97); Mean Platelet Volume 9 um3 (7.4-10.4); Red Blood Count 4.14 10^6/ul (4.0-5.4); Red Cell Distribution Width 15 % (10.5-15); White Blood Count 4.4 10^3/ul (3.5-10.8)
[2016-08-07 06:51] LABS: Albumin 3.2 g/dL (3.2-5.2); BUN/Creatinine Ratio 16.4 (8-20); Calcium 8.6 mg/dL (8.6-10.3); EGFR African American 124.7 (>60); Globulin 2.2 g/dL (2-4); Potassium 2.9 mmol/L (3.5-5.0); Total Bilirubin 0.5 mg/dL (0.2-1.0); Total Protein 5.4 g/dL (6.4-8.9)
[2016-08-07] MEDS: Insulin LISPRO* 1 UNITS UNIT SUBCUT SCH ×3 (08:31→19:09)
[2016-08-07] MEDS: Lisinopril TAB* 10 MG PO SCH (08:56)
[2016-08-07] MEDS: Pregabalin CAP(*) 50 MG PO SCH ×3 (08:56→21:18)
[2016-08-07] MEDS: Furosemide TAB* 40 MG PO SCH (08:57)
[2016-08-07] MEDS: Docusate CAP* 100 MG PO SCH ×2 (08:57→21:19)
[2016-08-07] MEDS: Citalopram TAB* 20 MG PO SCH (08:57)
[2016-08-07] MEDS: Dipyridamole/Aspirin 25/200* CAP.ER PO SCH ×2 (08:57→21:19)
[2016-08-07] MEDS: Cyanocobalamin TAB* 500 MCG PO SCH (08:57)
[2016-08-07] MEDS: metFORMIN* 500 MG TAB PO SCH (17:12)
[2016-08-07] MEDS: Atorvastatin* 20 MG TAB PO SCH (17:13)
[2016-08-08] MEDS: Levothyroxine TAB* 75 MCG TAB PO SCH (06:15)
[2016-08-08] MEDS: Omeprazole CAP* 20 MG PO SCH (06:15)
[2016-08-08] MEDS: Heparin VIAL(*) 5000 UNITS/ML VIAL (FIVE THOUSAND) SUBCUT SCH ×3 (06:17→21:33)
[2016-08-08] MEDS: Insulin LISPRO* 1 UNITS UNIT SUBCUT SCH ×2 (08:34→17:15)
[2016-08-08] MEDS: Pregabalin CAP(*) 50 MG PO SCH ×3 (09:05→20:52)
[2016-08-08] MEDS: Dipyridamole/Aspirin 25/200* CAP.ER PO SCH ×2 (09:05→20:52)
[2016-08-08] MEDS: Citalopram TAB* 20 MG PO SCH (09:06)
[2016-08-08] MEDS: Docusate CAP* 100 MG PO SCH ×2 (09:06→20:52)
[2016-08-08] MEDS: Furosemide TAB* 40 MG PO SCH (09:06)
[2016-08-08] MEDS: Cyanocobalamin TAB* 500 MCG PO SCH (09:06)
[2016-08-08] MEDS: Lisinopril TAB* 10 MG PO SCH (09:06)
[2016-08-08] MEDS: metFORMIN* 500 MG TAB PO SCH (17:14)
[2016-08-08] MEDS: Atorvastatin* 20 MG TAB PO SCH (17:14)
[2016-08-08] MEDS: levETIRAcetam TAB* 500 MG PO SCH (20:52)
--- NOTE | 2016-08-09 03:55 | EEG ---
ELECTROENCEPHALOGRAPHY: DATE OF STUDY: 08/08/16 LOCATION: The patient is an inpatient. ORDERING PHYSICIAN: Dr. Tucker. CLINICAL PROBLEM: This is a 70-year-old woman who had a left subcortical stroke resulting in right hemiparesis recently while in [place]. Ten years ago , she had a fall that resulted in hemorrhage on the right side with subsequent craniotomy and hematoma evacuation. She has been having episodes of facial flushing and warmth associated with feeling like she is going to fall. EEG is requested to evaluate for epileptiform abnormalities. MEDICATIONS: 1. Lyrica. 2. Lisinopril. 3. Synthroid. 4. Lispro insulin. 5. Lasix. 6. Aggrenox. 7. Celexa. 8. Lipitor. REPORT: The most notable feature of the interictal EEG is the presence of continuous polymorphic, mixed frequency slowing in the right hemisphere and in particular the right temporal region. This slowing often is of higher amplitude than the rest of the background, and not infrequently in the 1 to 2 Hz range with sharp contours. In addition to this slowing, there are spike and slow wave features which have an unusual polarity in that they are positive and also somewhat atypical morphology. Otherwise, the waking background showed appropriate organization with clearly defined anterior to posterior voltage and frequency gradients. There was a well defined posterior dominant rhythm of 9.5 Hz, which was symmetrical and showed normal reactivity. Anteriorly, there was an expected pattern of lower voltage, irregular, mixed faster frequencies. Photic stimulation and hyperventilation were not performed. Attenuation of the occipital rhythm accompanied drowsiness, but there were no well- developed sleep spindles to indicate transition to stage 2 sleep. CLINICAL IMPRESSION: This is an abnormal waking and drowsy EEG due to the presence of slowing in the right temporal region and epileptiform discharges in this region as well. These have an unusual morphology and polarity, but this may be due to alterations in brain anatomy secondary to hemorrhage and subsequent evacuation of hematoma. These findings are suggestive of neuronal dysfunction and increased epileptic potential in the right temporal region. There are no seizures noted during this recording. [id number]/[facility] #: [id number] [facility]ITAL[facility]ango
[2016-08-09] MEDS: Omeprazole CAP* 20 MG PO SCH (06:33)
[2016-08-09] MEDS: Levothyroxine TAB* 75 MCG TAB PO SCH (06:33)
[2016-08-09] MEDS: Heparin VIAL(*) 5000 UNITS/ML VIAL (FIVE THOUSAND) SUBCUT SCH ×3 (06:33→22:21)
[2016-08-09] MEDS: Insulin LISPRO* 1 UNITS UNIT SUBCUT SCH ×2 (07:20→17:45)
[2016-08-09] MEDS: Pregabalin CAP(*) 50 MG PO SCH ×3 (09:20→21:48)
[2016-08-09] MEDS: Citalopram TAB* 20 MG PO SCH (09:21)
[2016-08-09] MEDS: Furosemide TAB* 40 MG PO SCH (09:21)
[2016-08-09] MEDS: levETIRAcetam TAB* 500 MG PO SCH ×2 (09:21→21:48)
[2016-08-09] MEDS: Lisinopril TAB* 10 MG PO SCH (09:22)
[2016-08-09] MEDS: Cyanocobalamin TAB* 500 MCG PO SCH (09:22)
[2016-08-09] MEDS: Docusate CAP* 100 MG PO SCH ×2 (09:23→21:48)
[2016-08-09] MEDS: Dipyridamole/Aspirin 25/200* CAP.ER PO SCH ×2 (09:23→21:48)
[2016-08-09] MEDS: Atorvastatin* 20 MG TAB PO SCH (17:45)
[2016-08-09] MEDS: metFORMIN* 500 MG TAB PO SCH (17:45)
[2016-08-10] MEDS: Omeprazole CAP* 20 MG PO SCH (05:58)
[2016-08-10] MEDS: Levothyroxine TAB* 75 MCG TAB PO SCH (05:58)
[2016-08-10] MEDS: Heparin VIAL(*) 5000 UNITS/ML VIAL (FIVE THOUSAND) SUBCUT SCH ×3 (05:59→21:53)
[2016-08-10] MEDS: Insulin LISPRO* 1 UNITS UNIT SUBCUT SCH ×2 (07:08→16:36)
[2016-08-10] MEDS: Dipyridamole/Aspirin 25/200* CAP.ER PO SCH ×2 (08:10→21:50)
[2016-08-10] MEDS: Lisinopril TAB* 10 MG PO SCH (08:10)
[2016-08-10] MEDS: levETIRAcetam TAB* 500 MG PO SCH ×2 (08:10→21:50)
[2016-08-10] MEDS: Citalopram TAB* 20 MG PO SCH (08:10)
[2016-08-10] MEDS: Furosemide TAB* 40 MG PO SCH (08:10)
[2016-08-10] MEDS: Pregabalin CAP(*) 50 MG PO SCH ×3 (08:10→21:51)
[2016-08-10] MEDS: Docusate CAP* 100 MG PO SCH ×2 (08:10→21:51)
[2016-08-10] MEDS: Cyanocobalamin TAB* 500 MCG PO SCH (08:10)
[2016-08-10] MEDS: Atorvastatin* 20 MG TAB PO SCH (17:30)
[2016-08-10] MEDS: metFORMIN* 500 MG TAB PO SCH (17:31)
[2016-08-11] MEDS: Levothyroxine TAB* 75 MCG TAB PO SCH (04:59)
[2016-08-11] MEDS: Omeprazole CAP* 20 MG PO SCH (04:59)
[2016-08-11] MEDS: Heparin VIAL(*) 5000 UNITS/ML VIAL (FIVE THOUSAND) SUBCUT SCH ×3 (05:00→21:25)
[2016-08-11] MEDS: Insulin LISPRO* 1 UNITS UNIT SUBCUT SCH ×2 (07:47→18:07)
[2016-08-11] MEDS: Dipyridamole/Aspirin 25/200* CAP.ER PO SCH ×2 (08:31→20:13)
[2016-08-11] MEDS: Furosemide TAB* 40 MG PO SCH (08:31)
[2016-08-11] MEDS: Pregabalin CAP(*) 50 MG PO SCH ×3 (08:31→20:12)
[2016-08-11] MEDS: Citalopram TAB* 20 MG PO SCH (08:31)
[2016-08-11] MEDS: Lisinopril TAB* 10 MG PO SCH (08:32)
[2016-08-11] MEDS: Cyanocobalamin TAB* 500 MCG PO SCH (08:32)
[2016-08-11] MEDS: Docusate CAP* 100 MG PO SCH ×2 (08:32→20:12)
[2016-08-11] MEDS: levETIRAcetam TAB* 500 MG PO SCH ×2 (08:32→20:13)
[2016-08-11] MEDS: Atorvastatin* 20 MG TAB PO SCH (16:53)
[2016-08-11] MEDS: metFORMIN* 500 MG TAB PO SCH (16:54)
[2016-08-12] MEDS: Levothyroxine TAB* 75 MCG TAB PO SCH (05:30)
[2016-08-12] MEDS: Omeprazole CAP* 20 MG PO SCH (05:30)
[2016-08-12] MEDS: Heparin VIAL(*) 5000 UNITS/ML VIAL (FIVE THOUSAND) SUBCUT SCH ×3 (05:31→21:18)
[2016-08-12] MEDS: Insulin LISPRO* 1 UNITS UNIT SUBCUT SCH ×2 (07:54→18:13)
[2016-08-12] MEDS: Dipyridamole/Aspirin 25/200* CAP.ER PO SCH ×2 (08:49→21:12)
[2016-08-12] MEDS: Citalopram TAB* 20 MG PO SCH (08:49)
[2016-08-12] MEDS: Furosemide TAB* 40 MG PO SCH (08:50)
[2016-08-12] MEDS: Docusate CAP* 100 MG PO SCH ×2 (08:50→21:13)
[2016-08-12] MEDS: Cyanocobalamin TAB* 500 MCG PO SCH (08:50)
[2016-08-12] MEDS: Lisinopril TAB* 10 MG PO SCH (08:50)
[2016-08-12] MEDS: levETIRAcetam TAB* 500 MG PO SCH ×2 (08:50→21:12)
[2016-08-12] MEDS: Pregabalin CAP(*) 50 MG PO SCH ×3 (08:51→21:13)
[2016-08-12] MEDS: Atorvastatin* 20 MG TAB PO SCH (18:12)
[2016-08-12] MEDS: metFORMIN* 500 MG TAB PO SCH (18:12)
[2016-08-13] MEDS: Heparin VIAL(*) 5000 UNITS/ML VIAL (FIVE THOUSAND) SUBCUT SCH ×3 (05:39→21:31)
[2016-08-13] MEDS: Omeprazole CAP* 20 MG PO SCH (05:39)
[2016-08-13] MEDS: Levothyroxine TAB* 75 MCG TAB PO SCH (05:39)
[2016-08-13] MEDS: Insulin LISPRO* 1 UNITS UNIT SUBCUT SCH ×2 (07:24→17:50)
[2016-08-13] MEDS: Docusate CAP* 100 MG PO SCH ×2 (08:06→21:32)
[2016-08-13] MEDS: Cyanocobalamin TAB* 500 MCG PO SCH (08:07)
[2016-08-13] MEDS: Citalopram TAB* 20 MG PO SCH (08:07)
[2016-08-13] MEDS: levETIRAcetam TAB* 500 MG PO SCH ×2 (08:07→21:27)
[2016-08-13] MEDS: Furosemide TAB* 40 MG PO SCH (08:07)
[2016-08-13] MEDS: Dipyridamole/Aspirin 25/200* CAP.ER PO SCH ×2 (08:07→21:26)
[2016-08-13] MEDS: Lisinopril TAB* 10 MG PO SCH ×2 (08:07→21:27)
[2016-08-13] MEDS: Pregabalin CAP(*) 50 MG PO SCH ×3 (08:07→21:27)
--- NOTE | 2016-08-13 12:25 | PMRUTEAM ---
PMRU: Goals Current Status: Nursing: Current Status Skin Deviations [Right Abdomen Bruise ] Skin Deviation Description [ from heparin shots Right Abdomen] Bladder Current Status continent of bladder Bowel Current Status independent with ostomy care Nutrition Current Status adequate Medication Current Status meds whole with water, heparin shots tid Physical Therapy: Current Status Bed Mobility Assistance Independent Transfer Moblility Assistance Supervision Transfer/Bed Mobility Rolling Walker Recommended Devices Ambulation Assistance Supervision,Contact Guard Assist Ambulation Assistive Devices Rolling Walker Number of Feet Patient 150x2 Ambulated Stairs Assistance Supervision Stairs Recommended Devices Two Rails Number of Stairs 6 Occupational Therapy: Current Status Upper Body Dressing Independent Lower Body Dressing Ind with Adaptive Equip Lower Body Dressing Progress Pt had difficulty with threading pants while sitting on higher surface. Bathing Ind with Adaptive Equip Bathing Progress Grab bar in shower to stand. Toileting Ind with Adaptive Equip Toileting Progress FWW with grab bar Toilet Transfer Ind with Adaptive Equip Toilet Transfer Progress FWW with grab bar Shower Transfer Ind with Adaptive Equip Shower Transfer Progress FWw with grab bar Eating Independent Rec Therapy: Current Status Summary of Assessment and RT assessment complete and pt. is aware of RT Clinical Impression services. Pt. is very engaged in leisure sessions in the afternoons. Treatment Goals Pt. will engage in leisure activities while on the unit. Treatment Plan Provide RT services and encourage involvement. Social Work: Current Status Discharge Plan return home with home care svs and family support Potential for Family Training pt's participated in family training 08/10 Anticipated Discharge Home Destination Discharge With home care svs and family support Nutrition: Current Status Monitoring eating 75-100% of meals, so intake is good. Consistent carb diet appropriate. FS ranging 110s -160s. Stool via colostomy. She is planning to go home tomorrow; no further nutrition intervention anticipated at this time. Goals: Physical Therapy: Initial Goals Bed Mobility Assistance Independent Transfer Mobility Assistance Independent Transfer/Bed Mobility Rolling Walker Recommended Devices Ambulation Independent Ambulation Recommended Devices Rolling Walker Ambulation Distance 150 Wheelchair Propulsion Ability Independent Stairs Assistance Independent Stair Recommended Devices Two Rails Number of Stairs 5 Physical Therapy: Updated Goals Transfer/Bed Mobility Rolling Walker Recommended Devices Occupational Therapy: Initial Goals Goals to be Completed in (Days 7-10 ) Upper Body Bathing Routine Independent Lower Body Bathing Routine Modified Independent with Upper Body Dressing Routine Independent Lower Body Dressing Routine Modified Independent with Toilet Hygeine and Clothing Modified Independent with Management Routine Toilet Transfer Routine Modified Independent with Step-In Shower Transfer Modified Independent with Routine Functional Transfers for ADL Modified Independent with Grooming Routine Independent Nutrition: Goals Intervention Goals 1. Adequate PO intake to prevent loss of lean body mass 2. Blood sugars WNL 3. Colostomy will continue proper functioning Speech: Goals Speech Goal 1 N/A evaluation only Goal 1 Comments Education: The patient was educated on memory strategies to assist with baseline memory deficits for which the patient stated and demonstrated use of 2 strategies independently which she used at home prior to hospitalization. The patient was educated on 2 additional strategies and demonstrated understanding and use. Written copy of memory strategies presented and left bedside for patient to refer to as needed. No skilled HEALTH CLINICIAN services warranted at this time. Social Work: Goals Discharge Plan return home with home care svs and family support Potential for Family Training pt's participated in family training 08/10 Anticipated Discharge Home Destination Discharge With home care svs and family support Care Plan: Care Plan ADL's - Improve/Maintain Start: 08/05/16 23:40 Freq: DAILY Status: Active Target: Activity Type Activity Date Activity User E-Sign Co-Sign Detail Recorded Client Recorded Date Recorded By Document 08/10/16 11:26 [id number] 08/10/16 11:26 [id number] 08/10/16 11:26 PMRU Outcome: ADL's/ADL Transfers Orders/Interventions Occupational Therapy Evaluation & Treatment Communication Tool in Patient Room Patient to receive OT 5x/wk for 60-120 Therex min/day Self Care Management Group Therapy UE/LE ADL's with Assist Yes: mod I ADL Transfers with Assist Yes: mod I Toileting: Transfers,Clothing Management Yes: mod I ,Hygeine w/Assist Progression Toward Outcome/Goals Progressing Cardiovascular- Improve/Maintain Start: 08/05/16 23:40 Freq: DAILY Status: Complete Target: Activity Type Activity Date Activity User E-Sign Co-Sign Detail Recorded Client Recorded Date Recorded By Document 08/12/16 20:00 [id number] 08/12/16 21:58 [id number] 08/12/16 20:00 PMRU Outcome: Cardiovascular Vital Signs q Shift for 48hrs Then BID Yes Daily Weight Ordered No Current Cardiovascular Outcome/Goal Maintain/ Achieve Baseline HR, BP , Perfusion Free of Abnormal Cardiac Symptoms Outcomes/Goals Met Maintain/ Achieve Baseline HR, BP , Perfusion Maintain/ Achieve Hemodynamic Stability Free of Abnormal Cardiac Symptoms Communication-Improve/Maintain Start: 08/06/16 12:01 Freq: DAILY Status: Active Target: Activity Type Activity Date Activity User E-Sign Co-Sign Detail Recorded Client Recorded Date Recorded By Document 08/12/16 10:20 [id number] 08/12/16 10:20 [id number] 08/12/16 10:20 PMRU Outcome: Communication/Cognitive Status Outcome/Goals Makes Needs Known Effectively Progression Toward Outcomes/Goals Progressing Outcome/Goals Met Comment Speech,language and cognitive- linguistic evaluation completed - The patients speech and language were unremarkable. The patient presented with baseline short term memory deficits from fall 10 years prior with subdural hematoma s/p craniotomy with evacuation. DVT Prophylaxis- Improve/Maintain Start: 08/05/16 23:40 Freq: DAILY Status: Complete Target: Activity Type Activity Date Activity User E-Sign Co-Sign Detail Recorded Client Recorded Date Recorded By Document 08/12/16 20:00 [id number] 08/12/16 21:58 [id number] 08/12/16 20:00 PMRU Outcome: DVT Prophylaxis Outcome/Goals Remains Free of DVT TEDS Stockings on Every AM, Off at HS Outcome/Goals Met Remains Free of DVT TEDS Stockings on Every AM, Off at HS Discharge Planning - Improve/Maintain Start: 08/05/16 23:40 Freq: DAILY Status: Active Target: Activity Type Activity Date Activity User E-Sign Co-Sign Detail Recorded Client Recorded Date Recorded By Document 08/12/16 10:20 [id number] 08/12/16 10:20 [id number] 08/12/16 10:20 PMRU Outcome: Discharge Planning Update Patient Family No Outcome/Goals Demonstrates Understanding of Discharge Plan Progression Toward Outcome/Goals Progressing /GI-Improve/Maintain Start: 08/05/16 23:40 Freq: DAILY Status: Active Target: Activity Type Activity Date Activity User E-Sign Co-Sign Detail Recorded Client Recorded Date Recorded By Document 08/13/16 09:19 [id number] 08/13/16 09:20 [id number] 08/13/16 09:19 PMRU Outcome: Genitourinary/ Gastrointestinal Genitourinary- Outcome/Goals Maintain/ Achieve Urinary Continence Maintain/ Achieve Adequate Urinary Output Remain Free of Hospital- Acquired UTI Gastrointestinal-Outcome/Goals Maintain/ Achieve Bowel Regularity in Accordance with Pt's Baseline Remain Free of Emesis Prevent Constipation Progression Toward Outcome/Goals - Progressing Progression Toward Outcome/Goals - GI Progressing Outcome/Goals Met Comment colostomy cared for by pt. Mobility- Improve/Maintain Start: 08/05/16 23:40 Freq: DAILY Status: Active Target: Activity Type Activity Date Activity User E-Sign Co-Sign Detail Recorded Client Recorded Date Recorded By Document 08/10/16 14:37 [id number] 08/10/16 14:37 [id number] 08/10/16 14:37 PMRU Outcome: Mobility Physical Therapy Evaluation and Yes Treatment Activity OOB with Assistance Yes WBAT Yes Device Yes Assistance Yes Patient to be seen 5x/wk for 60-120 min/ Therex day for: Mobility Training Gait Training W/C Mobility Balance Outcome/Goals Maintain/ Achieve Baseline Mobility Status Improve Mobility Status Demonstrates Proper Use of Assistive Devices Free from Complications of Immobility Progression Toward Outcome/Goals Progressing Bed Mobility Yes: independent Transfers Yes: independent with RW Gait x ft Yes: independent with rolling walker 150' Up/Down Stairs independent up/ down 5 steps. Safety- Improve/Maintain Start: 08/05/16 23:40 Freq: DAILY Status: Complete Target: Activity Type Activity Date Activity User E-Sign Co-Sign Detail Recorded Client Recorded Date Recorded By Document 08/12/16 20:00 [id number] 08/12/16 21:58 [id number] 08/12/16 20:00 PMRU Outcome: Safety Outcome/Goals Remain Free of Injury or Harm Cooperates with Safety Measures for Least Restrictive Environment Prevent Falls/ Injury Equipment Needed Outcome/Goals Met Remain Free of Injury or Harm Cooperates with Safety Measures for Least Restrictive Environment Prevent Falls/ Injury Equipment Needed Medicine Note: Length of Stay: 1 day Anticipated Discharge Destination: Home Tentative Discharge Date: 08/14/16 Discharged to: Home
[2016-08-13] MEDS: metFORMIN* 500 MG TAB PO SCH (17:49)
[2016-08-13] MEDS: Atorvastatin* 20 MG TAB PO SCH (17:49)
[2016-08-14] MEDS: Omeprazole CAP* 20 MG PO SCH (05:18)
[2016-08-14] MEDS: Levothyroxine TAB* 75 MCG TAB PO SCH (05:18)
[2016-08-14] MEDS: Heparin VIAL(*) 5000 UNITS/ML VIAL (FIVE THOUSAND) SUBCUT SCH (05:18)
[2016-08-14 05:24] VITALS: BP 166/76
[2016-08-14] MEDS: Insulin LISPRO* 1 UNITS UNIT SUBCUT SCH (07:57)
[2016-08-14] MEDS: Dipyridamole/Aspirin 25/200* CAP.ER PO SCH (08:00)
[2016-08-14] MEDS: Citalopram TAB* 20 MG PO SCH (08:00)
[2016-08-14] MEDS: Cyanocobalamin TAB* 500 MCG PO SCH (08:01)
[2016-08-14] MEDS: Pregabalin CAP(*) 50 MG PO SCH (08:01)
[2016-08-14] MEDS: Furosemide TAB* 40 MG PO SCH (08:01)
[2016-08-14] MEDS: levETIRAcetam TAB* 500 MG PO SCH (08:01)
[2016-08-14] MEDS: Docusate CAP* 100 MG PO SCH (08:01)
[2016-08-14] MEDS: Lisinopril TAB* 10 MG PO SCH (08:02)
--- NOTE | 2016-08-15 08:06 | DS ---
DISCHARGE SUMMARY: DATE OF ADMISSION: 08/05/16 DATE OF DISCHARGE: 08/14/16 DISCHARGE DIAGNOSES: 1. Left-sided stroke with right hemiparesis. 2. Diabetes. 3. Peripheral neuropathy. 4. Hypothyroidism. 5. History of traumatic brain injury. 6. History of craniotomy following subdural hematoma. 7. Osteoporosis. 8. Hypertension. 9. History of alcoholism. 10. Seizure disorder. HISTORY OF ILLNESS AND HOSPITAL COURSE: For complete history of the events leading up to her rehab stay, please see the H and P dictated by me on . While on the rehab unit, the patient's blood sugars remained in good control. On August 08, the patient was describing bizarre feelings that she was having like she was falling while she was lying in bed. These episodes were followed by the feeling of facial warmth. It had been noted that she was previously on Keppra, but this was stopped while she was a patient in [place]. An EEG was ordered which showed epileptiform discharges. The patient was put back on her Keppra and no further episodes occurred while on the rehab unit. The patient was maintained on aspirin and dipyridamole for secondary stroke prevention. The patient was seen by both Physical and Occupational Therapy and made good gains with both disciplines. With physical therapy at the time of admission, the patient required contact guard, minimal amount of assistance to do a transfer. She was able to ambulate with minimal amount of assistance about 80 feet. With occupational therapy, she was min assist for toilet transfers and toileting. By the time of discharge, the patient was independent with all of her activities of daily living. She was able to transfer independently. She was ambulating 50 feet using a front-wheeled walker independently. The patient was discharged to her own home on 08/14/16. DISCHARGE DIET: Consistent carbohydrate. DISCHARGE MEDICATIONS: Included: 1. Aggrenox 1 tablet orally twice a day. 2. Celexa 20 mg daily. 3. Lipitor 20 mg daily. 4. Lasix 40 mg daily. 5. Synthroid 75 mcg daily. 6. Lisinopril 20 mg twice daily. 7. Omeprazole 20 mg daily. 8. Keppra 500 mg twice daily. 9. Lyrica 100 mg 3 times a day. 10. Metformin 500 mg daily. SERVICES AFTER DISCHARGE: Through the [facility]. She will have home nursing, home physical therapy, and a home health aide. Follow up with Dr. Jozef Og in [place] in 2 to 3 weeks. CC: Dr. Jozef Og, [place]; Arianna* [id number]/[facility] #: [id number] MTDD
== END 2016-08-14 11:30 | disposition home health service (06) | DRG 57 ==
LOC: PMRU 15:26
PROVIDERS: ADMIT Physical Medicine & Rehabilitation; ATTEND Physical Medicine & Rehabilitation
PROC: F07Z5ZZ Bed Mobility Treatment (ICD-10-PCS; principal; 2016-08-05)
PROC: F07Z8ZZ Transfer Training Treatment (ICD-10-PCS; 2016-08-05)
PROC: F07Z9ZZ Gait Training/Functional Ambulation Treatment (ICD-10-PCS; 2016-08-05)
PROC: F08Z0ZZ Bathing/Showering Techniques Treatment (ICD-10-PCS; 2016-08-05)
PROC: F08Z1ZZ Dressing Techniques Treatment (ICD-10-PCS; 2016-08-05)
PROC: F08Z3ZZ Feeding/Eating Treatment (ICD-10-PCS; 2016-08-05)
DX: I69.354 Hemiplegia and hemiparesis following cerebral infarction affecting left non-dominant side (principal); E11.42 Type 2 diabetes mellitus with diabetic polyneuropathy; D51.0 Vitamin B12 deficiency anemia due to intrinsic factor deficiency; I10 Essential (primary) hypertension; E03.9 Hypothyroidism, unspecified; M81.0 Age-related osteoporosis without current pathological fracture; G40.909 Epilepsy, unspecified, not intractable, without status epilepticus; F10.21 Alcohol dependence, in remission; Z87.820 Personal history of traumatic brain injury; Z79.4 Long term (current) use of insulin; Z79.899 Other long term (current) drug therapy; Z88.8 Allergy status to other drugs, medicaments and biological substances; I69.322 Dysarthria following cerebral infarction
CPT/HCPCS: 36415; 80053; 85025; 95816; A9270-GY; J1644

== ENCOUNTER 2019-06-07 09:23 | Inpatient (IN) | payer MEDICARE ==
--- NOTE | 2019-06-07 09:39 | ED ---
GI/ HPI - HPI Summary HPI Summary: This patient is a 73 year old female presenting to [facility] with a chief complaint of suspected intestinal blockage. She states last night she started with pain and vomiting which has continued. she has a colostomy which she reports is still working. She states she has had blockage in the past and this is what it felt like. She believes it is caused by a hernia. She states she has never needed surgery due to a blockage. She states this blockage started after she ate. She reports skin diaphoresis. She rates her pain 8/10 in severity. Patient denies any fever, chills, erythema of eyes, sore throat, chest pain, shortness of breath, cough, dysuria, hematuria, myalgia, edema, rash, or dizziness. - History of Current Complaint Chief Complaint: EDAbdPain Stated Complaint: ABDOMINAL PAIN Hx Obtained From: Patient Onset/Duration: Started Hours Ago Timing: Lasting Hours Pain Intensity: 8 - Additional Pertinent History Primary Care Physician: [id number] - Allergy/Home Medications Allergies/Adverse Reactions: Allergies Allergy/AdvReac Type Severity Reaction Status Date / Time cyclophosphamide Allergy Unknown Swelling Verified 06/07/19 10:31 prednisone Allergy Unknown Swelling Uncoded 06/07/19 10:31 Home Medications: Home Medications Cyanocobalamin TAB* [Vitamin B12 TAB*] 500 mcg PO DAILY 08/04/16 [History Confirmed 06/07/19] Levothyroxine TAB* [Synthroid 75 MCG TAB*] 75 mcg PO DAILY 08/04/16 [History Confirmed 06/07/19] Pregabalin 100 mg CAP (*) [Lyrica 100 mg CAP (*)] 100 mg PO TID 08/04/16 [ History Confirmed 06/07/19] Omeprazole [Prilosec] 20 mg PO BID 08/06/16 [History Confirmed 06/07/19] Furosemide TAB* [Lasix TAB*] 40 mg PO DAILY tab 08/13/16 [Rx Confirmed 06/07/19 ] Atenolol TAB* [Tenormin TAB* 50 MG] 100 mg PO DAILY 06/07/19 [History Confirmed 06/07/19] Atorvastatin* [Lipitor 20 MG*] 40 mg PO BEDTIME 06/07/19 [History Confirmed ] Calcium Carbonate [Calcium] 600 mg PO TID 06/07/19 [History Confirmed 06/07/19] Clopidogrel TAB* [Plavix TAB*] 75 mg PO DAILY 06/07/19 [History Confirmed ] Pantoprazole TAB * [Protonix TAB*] 40 mg PO DAILY 06/07/19 [History Confirmed ] Potassium Chlor TAB (NF) [Kaon-Cl-10 TAB (NF)] 20 meq PO DAILY 06/07/19 [ History Confirmed 06/07/19] Spironolactone TAB* [Aldactone TAB*] 25 mg PO DAILY 06/07/19 [History Confirmed 06/07/19] metFORMIN* [Glucophage 500 MG TAB *] 500 mg PO DAILY 06/07/19 [History Confirmed 06/07/19] PMH/Surg Hx/FS Hx/Imm Hx Endocrine/Hematology History: Reports: Hx Diabetes Cardiovascular History: Reports: Hx Hypertension GI History: Reports: Hx Diverticulosis Sensory History: Reports: Hx Contacts or Glasses Denies: Hx Hearing Aid Opthamlomology History: Reports: Hx Contacts or Glasses Neurological History: Reports: Hx Seizures - Surgical History Surgery Procedure, Year, and Place: 2016 [facility] Infectious Disease History: No Infectious Disease History: Denies: History Other Infectious Disease, Traveled Outside the [place] in Last 30 Days - Family History Known Family History: Positive: Hypertension - Social History Alcohol Use: None Substance Use Type: Reports: None Smoking Status (MU): Never Smoked Tobacco Review of Systems Negative: Fever, Chills Negative: Erythema Negative: Sore Throat Negative: Chest Pain Negative: Shortness Of Breath, Cough Positive: Abdominal Pain, Vomiting, Nausea Negative: dysuria, hematuria Negative: Myalgia, Edema Negative: Rash Neurological/Mental Status: Other - Neg: Dizziness All Other Systems Reviewed And Are Negative: No Physical Exam - Summary Physical Exam Summary: Constitutional: Well-developed, Well-nourished, Alert. (-) Distressed Skin: Warm, Dry HENT: Normocephalic; Atraumatic Eyes: Conjunctiva normal Neck: Musculoskeletal ROM normal neck. (-) JVD, (-) Stridor, (-) Tracheal deviation Cardio: Rhythm regular, rate normal, Heart sounds normal; Intact distal pulses; Radial pulses are 2+ and symmetric. (-) Murmur Pulmonary/Chest wall: Effort normal. (-) Respiratory distress, (-) Wheezes, (-) Rales Abd: Soft, Diffuse abdominal tenderness. Colostomy with watery output. (-) Distension, (-) Guarding, (-) Rebound Musculoskeletal: (-) Edema Lymph: (-) Cervical adenopathy Neuro: Alert, Oriented x3 Psych: Mood and affect Normal Triage Information Reviewed: Yes Vital Signs On Initial Exam: Initial Vitals Temp Pulse Resp BP Pulse Ox 96.8 F 78 18 109/67 93 06/07/19 09:31 06/07/19 09:31 06/07/19 09:31 06/07/19 09:31 06/07/19 09:31 Vital Signs Reviewed: Yes Procedures - Sedation Patient Received Moderate/Deep Sedation with Procedure: No Diagnostics - Vital Signs Vital Signs Temp Pulse Resp BP Pulse Ox 06/07/19 09:31 96.8 F 78 18 109/67 93 - Laboratory Result Diagrams: 06/07/19 09:56 06/07/19 09:56 Lab Statement: Any lab studies that have been ordered have been reviewed, and results considered in the medical decision making process. - CT Abd/Pel CT CT Interpretation Completed By: Radiologist Summary of CT Findings: Impression: 1.Distention and mild dilatation of the small bowel without clear transition point. The differential includes partial or intermittent obstruction. There is a small amount of interloop fluid which may indicate internal herniation. 2. There is a large parastomal hernia containing loops of small bowel and large bowel. 3. Indeterminate, possibly solid nodule of the upper pole of the left kidney. Recommend consideration of further evaluation with ultrasound to further characterize this lesion. 4. There has been interval development of a left adrenal nodule, concerning for metastatic disease to the adrenal glands. 5. Status post cholecystectomy with biliary dilatation. 6. Atherosclerosis. 7. Diverticulosis. Dr. Hector has reviewed this report. - EKG 0952 Cardiac Rate: NL - 80 BPM EKG Rhythm: Sinus Rhythm Summary of EKG Findings: New T-wave inversions in V2 and V3. No STEMI. ED Physician has reviewed and interpreted this EKG. Re-Evaluation - Re-Evaluation First Eval Re-Evaluation Time: 13:22 Change: Improved Comment: Patients nausea is better. She is still reporting 7/10 pain in the periumbilical region. GIGU Course/Dx - Course Course Of Treatment: This patient is a 73 year old female presenting to [facility] with a chief complaint of suspected intestinal blockage. She states last night she started with pain and vomiting which has continued. she has a colostomy which she reports is still working. She states she has had blockage in the past and this is what it felt like. She believes it is caused by a hernia. She states she has never needed surgery due to a blockage. She states this blockage started after she ate. She reports skin diaphoresis. There is diffuse abdominal tenderness during physical examination. Patient has colostomy with watery output. Patient received fluids, Zofran, and Morphine for pain. Blood work significant for neutrophilic leukocytosis with WBCs 18.2 and absolute neutrophils 17, absolute lymphocytes 0.8, RBCs 5.12, creatinine 1.09, glucose 180, lactic acid 2.8, calcium 10.7, lipase <10. EKG at 0952 reveals sinus rhythm at rate of 80 BPM, New T-wave inversions in V2 and V3, no STEMI. Abd/Pel CT impression reveals distension and mild dilation of the small bowel without clear transition point concerning for possible partial or intermittent obstruction with small amount of interloop fluid indicating internal herniation , large parastomal hernia containing loops of small and large bowel, possible solid nodule of the upper pole of the left kidney, interval development of left adrenal nodule concerning for metastatic disease to adrenal glands, diverticulosis. Patient given additional Morphine with improvement. Repeat lactic acid 2.5. Dr. Rooney from surgery and Dr. May from the hospitalist services are aware of the patient with plan for admission and surgical consultation for bowel obstruction. Dr. May made aware of Dr. Rooney's recommendations for the patient following her evaluation in the ED. All results discussed with patient. She understands and agrees with plan. - Diagnoses Provider Diagnoses: Partial small bowel obstruction - Physician Notifications Discussed Care Of Patient With: Hilary Rooney - surgery Time Discussed With Above Provider: 14:00 Instructed by Provider To: Other - Dr. Rooney will consult for the patient for surgery. Dr. May accepts the patient for admission. Dr. Rooney has evaluated the patient in the ED. Dr. May made aware of surgery's recommendations. - Critical Care Time Critical Care Time: 30-74 min - 35 minutes Discharge ED - Sign-Out/Discharge Documenting (check all that apply): Patient Departure - Paitent accepted for admission by Dr. May. - Discharge Plan Condition: Stable Disposition: ADMITTED TO [facility] Referrals: Non Staff,Doctor [Medical Doctor] - - Attestation Statements Document Initiated by Scribe: Yes Documenting Scribe: Batool Atkins Provider For Whom Scribe is Documenting (Include Credential): Kali Hector MD Scribe Attestation: Abdirizak Zacarias Natalie George, scribed for Kali Hector MD on 06/07/19 at 1639. Status of Scribe Document: Ready
[2019-06-07] MEDS ORDERED: Morphine 4 MG/ML VIAL (1 ml) 4 MG/ML VIAL IV ONE ×2 (09:50→13:23)
[2019-06-07] MEDS ORDERED: NS 0.9% 1000 ML** 1,000 ML IV ONE (09:50)
[2019-06-07] MEDS ORDERED: Ondansetron INJ* 2 MG/ML VIAL IV ONE (09:50)
[2019-06-07 10:05] LABS: Hematocrit 43 % (35-47); Hemoglobin 13.9 g/dL (12.0-16.0); Mean Corpuscular HGB Conc 32 g/dL (31-36); Mean Corpuscular Hemoglobin 27 pg (27-31); Mean Corpuscular Volume 84 fL (80-97); Mean Platelet Volume 9.3 fL (7.4-10.4); Platelet Count 332 10^3/uL (150-450); Red Blood Count 5.12 10^6 /uL (3.70-4.87); Red Cell Distribution Width 15 % (10-15); White Blood Count 18.2 10^3/uL (3.5-10.8)
[2019-06-07 10:11] LABS: ABS Basophils 0.1 10^3/ul (0-0.2); ABS Lymphocytes 0.8 10^3/ul (1.0-4.8); ABS Monocytes 0.4 10^3/ul (0-0.8); Eosinophil % 0.1 %; Lymphocyte % 4.1 %
[2019-06-07 10:22] LABS: ALT 12 U/L (7-52); Albumin 4.2 g/dL (3.2-5.2); Albumin/Globulin Ratio 1.4 (1-3); Alkaline Phosphatase 94 U/L (34-104); BUN/Creatinine Ratio 11.9 (8-20); Blood Urea Nitrogen 13 mg/dL (6-24); C Reactive Protein 7.48 mg/L (<8.01); CO2 Carbon Dioxide 31 mmol/L (22-32); Calcium 10.7 mg/dL (8.6-10.3); Chloride 101 mmol/L (101-111); EGFR African American 59.5 (>60); EGFR Non-African American 49.2 (>60); Glucose 180 mg/dL (70-100); Sodium 141 mmol/L (135-145); Total Protein 7.2 g/dL (6.4-8.9)
[2019-06-07 10:55] LABS: AST 19 U/L (13-39); Anion Gap 9 mmol/L (2-11); Potassium 3.7 mmol/L (3.5-5.0)
[2019-06-07] MEDS ORDERED: Iodixanol* (CONTRAST) 320 MG/ML 100 ML SDV IV ONE (11:48)
[2019-06-07] MEDS: NS 0.9% 1000 ML** 1,000 ML IV SCH (17:37)
--- NOTE | 2019-06-07 17:59 | PN ---
Progress Note - Progress Note Date of Service: 06/07/19 Note: Brief Surgery Note: (full consult dictated) 73 yo patient seen and examined with Dr. Rooney in the ED ~ 1400. Presented w/ s/ sx of SBO with leukocytosis and mild elevation of lactate. CT shows dilated SB loops w/o a transition area; "interloop fluid, possibly c/w internal hernia". Large peristomal hernia (pre-existing). At the time of our visit, patient stated that her pain was much less (5/10) and at present she was not nauseated. In addition, she had put out > 650 ml of colostomy output, and the bag was full at the time of our examination. PE: Vital Signs - 8 hr 06/07/19 06/07/19 06/07/19 10:11 10:19 10:40 Temperature Pulse Rate 80 Respiratory 15 Rate Blood Pressure 113/79 123/70 (mmHg) O2 Sat by Pulse 93 Oximetry 06/07/19 06/07/19 06/07/19 11:00 11:10 11:40 Temperature Pulse Rate 76 76 76 Respiratory Rate Blood Pressure 120/78 113/85 (mmHg) O2 Sat by Pulse 97 97 97 Oximetry 06/07/19 06/07/19 06/07/19 12:23 12:24 12:40 Temperature Pulse Rate 76 77 74 Respiratory Rate Blood Pressure 139/67 129/75 (mmHg) O2 Sat by Pulse 99 98 96 Oximetry 06/07/19 06/07/19 06/07/19 13:00 13:10 13:29 Temperature Pulse Rate 74 74 Respiratory 16 Rate Blood Pressure 124/65 (mmHg) O2 Sat by Pulse 94 98 Oximetry 06/07/19 06/07/19 06/07/19 13:40 14:00 14:10 Temperature Pulse Rate 79 77 77 Respiratory Rate Blood Pressure 123/60 127/68 (mmHg) O2 Sat by Pulse 95 97 96 Oximetry 06/07/19 06/07/19 06/07/19 14:40 15:00 15:11 Temperature Pulse Rate 77 73 75 Respiratory Rate Blood Pressure 132/72 127/58 (mmHg) O2 Sat by Pulse 97 98 99 Oximetry 06/07/19 06/07/19 06/07/19 15:40 16:04 16:10 Temperature Pulse Rate 75 80 Respiratory Rate Blood Pressure 145/60 134/59 (mmHg) O2 Sat by Pulse 96 98 Oximetry 06/07/19 06/07/19 16:40 17:42 Temperature 99.7 F Pulse Rate 81 Respiratory Rate Blood Pressure 117/82 (mmHg) O2 Sat by Pulse 90 Oximetry Intake and Output Last 24 Hours 06/05/19 06/06/19 06/07/19 06/08/19 06:59 06:59 06:59 06:59 Output Total 675 Balance -675 Weight 180 lb Output: Colostomy 675 PE: Heart: reg Lungs: clear Abd: mult surg scars; Left sided colostomy w/ bag full of liquid contents; soft, with mild to moderate tenderness, mostly medial to colostomy, but not well localized; equivocal rebound. CT reviewed personally w/ Dr. Rooney. A: SBO (2 previous episodes, both treated conservatively) which appears to be, at most, partial. She is also somewhat high risk for surgical intervention. Her stomach was notably distended on the CT, but her ostomy is currently active. P: hospitalist admission; serial labs and exams. AXR in a.m. Will hold on NG for the present unless she vomits. Will continue to follow closely. Daughter was present by speakerphone at the time of interview and exam. Patient/daughter understand the potential need for surgical intervention. They agree with the present plan.
[2019-06-07] MEDS: Pregabalin 100 mg CAP (*) PO SCH (19:40)
[2019-06-07] MEDS: Enoxaparin(*) 40 MG/0.4 ML SYR SUBCUT SCH (19:52)
[2019-06-07] MEDS: Morphine INJ* 2 MG/ML 1 ML SYRINGE (TWO MG - NEW SYRINGE VERSION) IV PRN (21:11)
--- NOTE | 2019-06-07 21:38 | CONS ---
CC: Dr. Jozef Og * SURGICAL CONSULT NOTE: DATE OF CONSULT: 06/07/19 ATTENDING SURGEON: Dr. Hilary Rooney. CHIEF COMPLAINT: Abdominal pain. HISTORY OF PRESENT ILLNESS: This is a 73-year-old female who is status post multiple abdominal surgeries including surgery for diverticular disease with an end- colostomy at least 10 years ago. She has had at least 2 previous episodes of small bowel obstruction, both treated conservatively with resolution. The most recent being within the past 2 to 3 years. She was admitted to [facility] at that time. She is able to give most of her history. Some of it is supplemented by her daughter on a speaker phone. She apparently began having midabdominal pain last evening, which was severe in nature (up to 10/10) with associated sweats and chills. She was unable to sleep this morning. There was associated nausea and vomiting though she has not vomited since arrival in the ED, and was able to tolerate oral contrast. She states that her colostomy has been active throughout this period, maybe a little bit less active than usual, which prompted her to take milk of magnesia earlier in the day yesterday. She has had 2 prior similar episodes as noted above. Her previous surgeries include at least one or more for diverticular disease with end-colostomy. She did undergo extensive surgery for a parastomal hernia repair with mesh with subsequent recurrence (the current parastomal hernia has been present for at least the past few years). She apparently is status post cholecystectomy based on CT findings (see below). At the time of our interview and exam, she states that her pain was considerably less (down to 5 out of 10) and that she was no longer feeling nauseated. In addition, she was reported to have approximately 650 cc output from the colostomy reported by the nurse. Also , her colostomy bag is currently full of liquid. She is unsure exactly what her last colonoscopy was, but within the past 10 years and since her colostomy creation. PAST MEDICAL HISTORY: Hypertension, hyperlipidemia, diabetes, GERD with hiatal hernia, peripheral neuropathy, osteoporosis, prior subdural hematoma (related to a fall and requiring a craniotomy), stroke approximately 2 to 3 years ago ( treated here at [facility] [place], [place]). Renetta's granulomatosis and diverticular disease. PAST SURGICAL HISTORY: Previous surgeries include those noted above as well as right total hip arthroplasty and craniotomy as noted. MEDICATIONS: 1. Lyrica 100 mg t.i.d. 2. Levothyroxine 75 mcg once daily. 3. Furosemide 40 mg once daily. 4. Potassium chloride 20 mEq once daily. 5. Pantoprazole 40 mg b.i.d. 6. Plavix 75 mg once daily. 7. Atenolol 100 mg once daily. 8. Lisinopril 5 mg once daily. 9. Spironolactone 25 mg once daily. 10. Metformin 500 mg once daily. 11. Atorvastatin 40 mg once daily. 12. Escitalopram 10 mg once daily. She also takes following supplements. 1. Calcium carbonate 3 times daily. 2. Vitamin B12. DRUG ALLERGIES: CYCLOPHOSPHAMIDE and PREDNISONE (either of both caused swelling and hallucinations). FAMILY HISTORY: Significant for DVT in her father's family. No other DVT or PE history or problems related to bleeding. SOCIAL HISTORY: The patient is recently . 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 Her last alcohol being 12 years ago. REVIEW OF SYSTEMS: General: As noted above, no other recent or acute illnesses. Skin: No rashes or lesions of concern. HEENT: No problems reported. She complains of dry mouth. Cardiovascular: Hypertension. No history of [place] or angina. No chest pain or palpitations. Respiratory: No history of asthma, chronic cough or shortness of breath. GI: As above, per HPI. : No problems reported. Musculoskeletal: History of osteoporosis. Neuro/Psych: Status post stroke and peripheral neuropathy. Endocrine: Diabetes. PHYSICAL EXAM: Height 5 feet 5 inches, weight 180 pounds, temperature 96.8, blood pressure 124/63, pulse 74, respirations 16, on room air saturation 98%. General: Well-nourished, somewhat obese female, in no acute distress. Skin: Warm and dry. No suspicious rashes or lesions. HEENT: Pupils are equal, round , and reactive. EOMs intact. Oropharynx: Mucous membranes dry. Heart: Regular rate and rhythm. No murmur noted. Lungs: Clear to auscultation. No rales or wheezes. Breasts: Not examined. Abdomen: Multiple surgical scars. Left-sided colostomy with fluid- filled colostomy bag at that time of our exam. Mildly distended. No significant tympany. Bowel sounds are relatively hypoactive. Abdomen soft with tenderness primarily in the midline medial to the colostomy and elsewhere though not well localized. No palpable masses. There was no attempt to reduce the parastomal hernia. There is equivocal rebound. Extremities: 1+ edema bilaterally with mild tenderness. No significant calf tenderness. I was unable to easily feel peripheral pulses. Neurological: Grossly intact, but specific exam not performed. DIAGNOSTIC STUDIES/LAB DATA: White blood cell count 18,200, hemoglobin 13.9. Creatinine mildly elevated at 1.09, glucose 180, initial lactic acid 2.8 with repeat 2.5, calcium 10.7. Liver function tests and lipase were all normal. CT scan with apparent oral and IV contrast (personally reviewed with Dr. Rooney) reveal dilation of the small bowel without a clear transition point. There is noted to be small amount of interloop fluid, which may indicate internal herniation. There is a large parastomal hernia containing of loops both small and large bowel. There are clips in the gallbladder fossa and biliary dilatation consistent with prior cholecystectomy. There was a new development of a left adrenal nodule (1.7 x 2.2 cm) new compared with prior scan from 2005, per radiologist's concerning for possible metastatic disease. There was 1.8 x 1.7 indeterminant lesion in the upper pole of the left kidney. IMPRESSION: Small bowel obstruction (probable partial), multiple prior surgeries, and multiple medical problems. PLAN/RECOMMENDATIONS: The patient will be admitted to the hospitalist service, IV hydration will be maintained as well as n.p.o. status (the patient may need NG tube though, we will defer at the present time as she is no longer vomiting nor complaining of nausea and in fact has active colostomy output). We will follow her labs and serial exams as well as plain film of the abdomen in the morning. The patient was seen and examined with Dr. Rooney. The patient and her daughter agreed with the plan. They both understand the potential need for surgical intervention. JAELYN BRICEÑO [id number]/[facility] #: [id number] [facility]WORK[facility]
--- NOTE | 2019-06-07 23:32 | HP ---
CC: Dr. Og * HISTORY AND PHYSICAL: DATE OF ADMISSION: 06/07/19 PROVIDER: Rukhsana Vernon NP PRIMARY CARE PROVIDER: Dr. Og. ATTENDING PHYSICIAN WHILE IN THE HOSPITAL: Dr. Rachel May * (dictated by Rukhsana Vernon NP). CHIEF COMPLAINT: Abdominal pain and vomiting. HISTORY OF PRESENT ILLNESS: Ms. Witt is a 73-year-old female with a past medical history significant for stroke; hypertension; type 2 diabetes; peripheral neuropathy; history of hemorrhagic subdural hematoma, traumatic; diverticulitis; history of seizures, not currently on seizure medications; history of alcohol abuse, recovery x12 years, who presented to the emergency room with complaints of sharp mid abdominal pain and vomiting. The patient reports that she has had decreased stool in her colostomy for 2 days. She reports that yesterday she took milk of magnesia. She reports last evening she developed abdominal pain that progressively worsened overnight and started with vomiting approximately 4 a.m. Given the vomiting and severe abdominal pain, the patient reported to the emergency room for further evaluation. The patient also reports that she felt chills and clammy. She denies any black or tarry stools. She does report she continues to have output through the colostomy. She denies any fever, chills, unintended weight loss, chest pain, or edema. No cough, hemoptysis, or shortness of breath. She denies any gross hematuria, dyspnea, focal weakness, sensory loss, dysphagia, arthralgias, myalgias, rashes , lesions, open sores, psychosis, or anxiety. While in the emergency room, the patient had routine lab work drawn. She was found to have a white count of 18.[address] she had a CT of the abdomen and pelvis, which showed distention, mild dilation of the small bowel without clear transition point. The differential includes partial to intermittent obstruction. There was a small amount of interlooped fluid, which may indicate internal herniation. She does have a large parastomal hernia containing loops of small bowel and large bowel. She does have a possible solid nodule in the right upper pole of the left kidney. Recommend further evaluation with ultrasound to characterize lesion that has been interval development of a left adrenal nodule concerning for metastatic disease to the renal gland. Due to the findings of partial small bowel obstruction, hospital medicine was asked to see and evaluate her for admission. PAST MEDICAL HISTORY: Significant for: 1. Left subcortical stroke July 2016. 2. Hypertension. 3. Type 2 diabetes. 4. Peripheral neuropathy. 5. History of traumatic hemorrhagic subdural hematoma. 6. Diverticulitis. 7. History of seizures. 8. History of alcohol abuse and recovery x12 years. PAST SURGICAL HISTORY: 1. Craniotomy. 2. Right hip pain. 3. Appendectomy. 4. Hysterectomy. 5. . 6. Cholecystectomy. HOME MEDICATIONS: Include: 1. Lasix 40 mg p.o. daily. 2. Potassium 20 mEq daily. 3. Pantoprazole 40 mg p.o. daily. 4. Omeprazole 20 mg p.o. b.i.d. 5. Lyrica 100 mg t.i.d. 6. Clopidogrel 75 mg p.o. daily. 7. Metformin 500 mg p.o. daily. 8. Tylenol 100 mg p.o. daily. 9. Levothyroxine 75 mcg p.o. daily. 10. Atorvastatin 40 mg p.o. at bedtime. 11. Spironolactone 25 mg p.o. daily. 12. Lasix 40 mg p.o. daily. 13. Vitamin B12 500 mcg p.o. daily. 14. Calcium carbonate 600 mg p.o. t.i.d. ALLERGIES: CYCLOPHOSPHAMIDE and PREDNISONE. FAMILY HISTORY: Mother with a history of heart disease. Father with a history of diabetes and colon cancer. SOCIAL HISTORY: The patient denies any tobacco or recreational drug use. She denies any current use of alcohol. She is a recovering alcoholic. No alcohol use x12 years. Surrogate decision maker in the event she is unable to make her own decisions is her , Jozef. She wishes to be a DNR. REVIEW OF SYSTEMS: A 14-point review of systems was completed. All pertinent positives were mentioned in the HPI, otherwise were negative. PHYSICAL EXAMINATION GENERAL: At this time, Ms. Witt is alert and oriented. Resting on the stretcher in the emergency room. She is in no acute distress. VITAL SIGNS: Blood pressure 126/46, heart rate is 80, respirations 16, O2 saturation 96% on room air, temperature was 99.7. HEENT: Head is atraumatic, normocephalic. Eyes: EOMs are intact. Sclerae anicteric and not pale. Oral mucosa is moist. NECK: Supple. LUNGS: Clear to auscultation bilaterally. No wheezes, rales, or rhonchi. CARDIAC: S1, S2. Regular rate and rhythm. No murmurs, rubs, or gallops. ABDOMEN: Soft. Bowel sounds are active x4. She does have colostomy to her right abdomen, is draining brown stool. She does have mild mid abdominal tenderness with palpation. EXTREMITIES: She is able to move all 4 extremities. There is no clubbing or cyanosis. NEUROLOGIC: She is awake, alert, and oriented x3. Speech is clear. Thought process is intact. SKIN: Intact. DIAGNOSTIC STUDIES/LAB DATA: WBCs are 18.2, RBCs 5.12, hemoglobin 13.9, hematocrit is 43, platelet count 332, absolute neutrophils 17.0. Sodium 141, potassium 3.7, chloride 101, carbon dioxide 71, anion gap of 9, BUN 13, creatinine 1.09, glucose is 180. Lactic acid was 2.8, repeat was 2.5. Calcium was 10.7, lipase was less than 10. Urine is currently pending. CT of the abdomen and pelvis, radiologist's impression: 1. Distended mild dilation of the small bowel without clear transition point. The differential includes partial to intermittent obstruction. There is a small amount of interlooped fluid, which may indicate internal herniation. There is a large parastomal hernia that contains loops of the small bowel and large bowel, indeterminant possibly solid nodule in the upper pole of left kidney. Recommend consideration for further evaluation with ultrasound to further characterize lesion. There has also been interval development of a left adrenal nodule concerning for metastatic disease to the adrenal gland. 2. Status post cholecystectomy with biliary dilation, atherosclerosis and diverticulitis. She had an electrocardiogram that showed sinus rhythm rate of 80, have a slight depression in V2, V3, V4, T-wave inversion in V1 and V2. She had previous EKG with T-wave inversion in V1. ASSESSMENT AND PLAN: Ms. Witt is a 73-year-old female with past medical history significant for left subcortical stroke in 2017, hypertension, type 2 diabetes, peripheral neuropathy, traumatic hemorrhagic subdural hematoma, diverticulitis, and history of seizures after her subdural hematoma with history of alcohol abuse, diverticulitis, diverticulosis, peripheral neuropathy , who presented to the emergency room with complaints of abdominal pain and vomiting, who had a CT of the abdomen concerning for partial bowel obstruction. She will be admitted under observation for: 1. Abdominal pain. I suspect this is related to partial small bowel obstruction. Surgery was consulted and she was seen in consultation by Dr. Rooney. She will be n.p.o. except for a few ice chips overnight. Should the patient have any further episodes of vomiting, it has been recommended the patient have an NG tube placed. At this time, she has had no further episodes of vomiting, so NG tube was not placed in the emergency room. We will continue to monitor her for further abdominal pain or any other worsening symptoms. We will repeat a CBC and BMP in the a.m. 2. Vomiting. Again I suspect this is related to her partial bowel obstruction. She has had no further vomiting since admission to the emergency room. We will hold on placing NG tube at this time. Should the patient have further episodes of vomiting at the time we will place an NG tube, I am also going to get a chest x-ray to rule out any aspiration as the patient does report several episodes of vomiting. 3. Leukocytosis. The patient does have leukocytosis at this time. She does not have any evidence of infection. She is afebrile with a temperature of 96.8. She did have an elevated lactic acid. I suspect this is related to vomiting and dehydration. I am going to hold off on placing the patient on IV antibiotics as there is no clear source of infection at this time. I do not think the patient is septic as she is afebrile with no clear source of infection. She did receive IV fluids in the emergency room. I will continue her on normal saline at 75 cc per hour overnight and repeat her lactic acid. Should a source of infection present, we will treat her with antibiotics at that time. 4. Hypertension. I am holding her medications as she is n.p.o. We could consider starting her on standing metoprolol as the patient does take atenolol 100 mg daily if her blood pressure become elevated. 5. Hypothyroid. She should continue on levothyroxine. Will need to start levothyroxine when able. 6. Type 2 diabetes. She takes metformin at home. I will hold her metformin here and place her on lispro sliding scale with fingersticks a.c. and h.s. 7. Peripheral neuropathy. The patient takes Lyrica 100 mg t.i.d. I will give her Lyrica 100 mg p.o. as this has been okay with Dr. Rooney from Surgery. 8. Gastroesophageal reflux disease. I will hold her omeprazole. 9. FEN: She is n.p.o. except a few ice chips. 10. Code status: She is a DNR. 11. Left kidney and left adrenal nodules. The patient is noted to have a possible solid nodule in the left kidney and development of a nodule in the left adrenal concerning for metastatic disease. I would recommend that this be followed up as an outpatient with ultrasound and further imaging. TIME SPENT: Time spent on this admission was 60 minutes. Greater than half that time was spent at the bedside reviewing events leading thus far to her hospitalization, performing physical exam, and reviewing my plan of care. RUKHSANA VERNON, ALISHA [id number]/[facility] #: [id number] LEONIDAS
[2019-06-08 05:33] LABS: ABS Lymphocytes 1.5 10^3/ul (1.0-4.8); ABS Monocytes 0.7 10^3/ul (0-0.8); ABS Neutrophils 7.1 10^3/ul (1.5-7.7); Eosinophil % 0.4 %; Hematocrit 35 % (35-47); Hemoglobin 11.2 g/dL (12.0-16.0); Lymphocyte % 16.4 %; Mean Corpuscular HGB Conc 32 g/dL (31-36); Mean Corpuscular Hemoglobin 27 pg (27-31); Mean Corpuscular Volume 86 fL (80-97); Mean Platelet Volume 9.5 fL (7.4-10.4); Platelet Count 237 10^3/uL (150-450); Red Blood Count 4.08 10^6 /uL (3.70-4.87); Red Cell Distribution Width 16 % (10-15); White Blood Count 9.4 10^3/uL (3.5-10.8)
[2019-06-08 05:52] LABS: BUN/Creatinine Ratio 19.5 (8-20); Calcium 8.5 mg/dL (8.6-10.3); EGFR African American 88.9 (>60); EGFR Non-African American 73.5 (>60); Potassium 3.4 mmol/L (3.5-5.0)
[2019-06-08] MEDS: NS 0.9% 1000 ML** 1,000 ML IV SCH (06:36)
[2019-06-08] MEDS: Morphine INJ* 2 MG/ML 1 ML SYRINGE (TWO MG - NEW SYRINGE VERSION) IV PRN ×4 (06:36→21:10)
[2019-06-08] MEDS: Pregabalin 100 mg CAP (*) PO SCH ×3 (10:06→20:23)
--- NOTE | 2019-06-08 11:14 | PN ---
Progress Note - Progress Note Date of Service: 06/08/19 Note: Surgery Progress: S: c/o some pain (08/24), worse when she coughs. Has only used MS 2 mg x 2. Denies N/V. States her bag was emptied x 2 this a.m. O: Vital Signs - 8 hr 06/08/19 06/08/19 06/08/19 06:36 07:46 08:01 Temperature 97.4 F Pulse Rate 76 Respiratory 16 18 16 Rate Blood Pressure 121/50 (mmHg) O2 Sat by Pulse 95 Oximetry 06/08/19 10:06 Temperature Pulse Rate Respiratory 18 Rate Blood Pressure (mmHg) O2 Sat by Pulse Oximetry Intake and Output Last 24 Hours 06/06/19 06/07/19 06/08/19 06/09/19 06:59 06:59 06:59 06:59 Intake Total 1000 0 Output Total 1025 Balance -25 0 Weight 183 lb 3.2 oz Intake: IVPB 1000 Oral 0 0 Output: Liquid Stool 350 Colostomy 675 Other: # Voids 0 Gen: lying in bed; appears comfortable; NAD Heart: reg Lungs: clear Abd: colostomy w/ gas; BS+, sl hyperactive; soft; mild to moderate tenderness, including around stoma as well as diffusely across abd (not well-localized). No peritoneal signs. Labs: Laboratory Tests 06/07/19 06/08/19 06/08/19 21:12 05:09 05:09 WBC 9.4 Hgb 11.2 L Potassium 3.4 L Glucose 127 H Lactic Acid 1.9 AXR: Exam Date: 06/08/19 0800 ADM Status: ADM Diamante Order Information: ABDOMEN (COMPLETE) 2 [facility] Accession Number: [id number] CPT: 26990 HISTORY: f/u SBO COMPARISONS: CT dated June 07, 2019 VIEWS: Frontal views of the abdomen. FINDINGS: BOWEL: There is a nonspecific bowel gas pattern, with nondilated small bowel gas noted. The degree of small bowel distention has decreased from the previous examination. Again noted is a left-sided central hernia. Oral contrast is noted within the colon. There are multiple diverticula of the colon. CALCULI: There are no abnormal calculi. Contrast is noted within the bladder. BONES AND SOFT TISSUES: The patient is status post right hip arthroplasty. Degenerative changes are noted. OTHER FINDINGS: The lung bases are clear. There is no subphrenic gas. IMPRESSION: NONSPECIFIC BOWEL GAS PATTERN. AGAIN NOTED IS A LEFT-SIDED HERNIA. THERE HAS BEEN INTERVAL DECREASE IN THE CALIBER OF THE SMALL BOWEL COMPARED TO THE PREVIOUS CT EXAMINATION. A: pSBO, appears to be improving, with normalization of WBC and lactate, as well as some improvement in plain film P: cont IVF, pain control; will discuss clear liquids w/ Dr. Rooney. Also discussed w/ Dr. Han.
--- NOTE | 2019-06-08 12:25 | PN ---
Subjective Date of Service: 06/08/19 Interval History: Tmax 99.7 some abdominal discomfort persists, especially with exam. no more vomiting chills, but no fevers. No SOB, cough, chest pain, BUNN, muscle aches, dysuria. Just buried her on . Thinks last abdominal imaging through [facility] was about 1 year ago. Planning on transferring specialist care to [place] in future but has not yet established. Objective Active Medications: Enoxaparin Sodium (Lovenox(*)) 40 mg SUBCUT Q24H [facility] Last Admin: 06/07/19 19:52 Dose: 40 mg Sodium Chloride (Ns 0.9% 1000 Ml) 1,000 mls @ 75 mls/hr IV PER RATE [facility] Last Admin: 06/08/19 06:36 Dose: 75 mls/hr Morphine Sulfate (Morphine Inj (Syringe))*) 2 mg IV Q4H PRN PRN Reason: PAIN - SEVERE Last Admin: 06/08/19 11:57 Dose: 2 mg Pregabalin (Lyrica 100 Mg Cap (*)) 100 mg PO TID [facility] Last Admin: 06/08/19 10:06 Dose: 100 mg Vital Signs - 8 hr 06/08/19 06/08/19 06/08/19 06:36 07:46 08:01 Temperature 97.4 F Pulse Rate 76 Respiratory 16 18 16 Rate Blood Pressure 121/50 (mmHg) O2 Sat by Pulse 95 Oximetry 06/08/19 06/08/19 10:06 11:57 Temperature Pulse Rate Respiratory 18 20 Rate Blood Pressure (mmHg) O2 Sat by Pulse Oximetry Oxygen Devices in Use Now: None Appearance: NAD Eyes: No Scleral Icterus Respiratory: Symmetrical Chest Expansion and Respiratory Effort, Clear to Auscultation Cardiovascular: NL Sounds; No Murmurs; No JVD Abdominal: - - left lateral opaque ostomy bag. Tenderness to light palpatin in epigastric and LLQ. Extremities: No Edema Skin: No Rash or Ulcers Neurological: Alert and Oriented x 3 Nutrition: Taking PO's Result Diagrams: 06/08/19 05:09 06/08/19 05:09 Additional Lab and Data: Laboratory Results - last 24 hr 06/07/19 06/07/19 06/08/19 15:33 21:12 05:09 WBC 9.4 RBC 4.08 Hgb 11.2 L Hct 35 MCV 86 MCH 27 MCHC 32 RDW 16 H Plt Count 237 MPV 9.5 Neut % (Auto) 75.7 Lymph % (Auto) 16.4 Mckean % (Auto) 7.1 Eos % (Auto) 0.4 Baso % (Auto) 0.4 Absolute Neuts (auto) 7.1 Absolute Lymphs (auto) 1.5 Absolute Monos (auto) 0.7 Absolute Eos (auto) 0.0 Absolute Basos (auto) 0.0 Absolute Nucleated RBC 0.0 Nucleated RBC % 0.0 Sodium Potassium Chloride Carbon Dioxide Anion Gap BUN Creatinine Est GFR ( Amer) Est GFR (Non-Af Amer) BUN/Creatinine Ratio Glucose Lactic Acid 2.5 H* 1.9 Calcium 06/08/19 05:09 WBC RBC Hgb Hct MCV MCH MCHC RDW Plt Count MPV Neut % (Auto) Lymph % (Auto) Mckean % (Auto) Eos % (Auto) Baso % (Auto) Absolute Neuts (auto) Absolute Lymphs (auto) Absolute Monos (auto) Absolute Eos (auto) Absolute Basos (auto) Absolute Nucleated RBC Nucleated RBC % Sodium 140 Potassium 3.4 L Chloride 109 Carbon Dioxide 25 Anion Gap 6 BUN 15 Creatinine 0.77 Est GFR ( Amer) 88.9 Est GFR (Non-Af Amer) 73.5 BUN/Creatinine Ratio 19.5 Glucose 127 H Lactic Acid Calcium 8.5 L Assess/Plan/Problems-Billing Assessment: 73 year old female H CVA(2016), HTN, DMT2, traumatic SDH, seizure do, vishal' s granulmatosis, diveritculitis/osis s/p colostomy, pSBO, para-stomal hernia s/ p failed correction presenting with abdominal pain, nausea, vomiting. CT abdomen/pelvis w/ IV concerning for pSBO and left kidney and left adrenal nodules. - Patient Problems (1) Partial small bowel obstruction Current Visit: Yes Status: Acute Code(s): K56.600 - PARTIAL INTESTINAL OBSTRUCTION, UNSPECIFIED TO CAUSE SNOMED Code(s): 751445098 Comment: appreciate surgical recs, npo currently. advance diet to sips potentially but given continued abdominal pain will defer to surgery. IVF add zofran prn known parastomal hernia. (2) Adrenal nodule Current Visit: Yes Status: Acute Code(s): E27.8 - OTHER SPECIFIED DISORDERS OF ADRENAL GLAND SNOMED Code(s): 119520397 Comment: requested records from [facility]. I don't think she would tolerate a kidney US at moment. (3) CVA (cerebral vascular accident) Current Visit: No Status: Acute Code(s): I63.9 - CEREBRAL INFARCTION, UNSPECIFIED SNOMED Code(s): 348385365 Comment: Patient s/p left subcortical CVA on 07/23/16 holding plavix in case need ex-lap restart atorvastatin when able to tolerate pills. (4) DVT prophylaxis Current Visit: No Status: Acute Code(s): UIS6795 - SNOMED Code(s): 481710689 Comment: SQ lovenox (5) Diabetes mellitus Current Visit: No Status: Chronic Code(s): E11.9 - TYPE 2 DIABETES MELLITUS WITHOUT COMPLICATIONS SNOMED Code(s): 25644827 Comment: BS 120-170 Home metformin 500 daily held poc qachs, currently npo. but add SSI if diet advanced (6) HTN (hypertension) Current Visit: No Status: Chronic Code(s): I10 - ESSENTIAL (PRIMARY) HYPERTENSION SNOMED Code(s): 52864801 Comment: 120-140 while off her home meds of atenolol 100 daily, spironolactone 25 and furosemide 40 daily. (7) Peripheral neuropathy Current Visit: No Status: Chronic Code(s): G62.9 - POLYNEUROPATHY, UNSPECIFIED SNOMED Code(s): 568970775 Comment: Continue pregabalin. (8) Seizure disorder Current Visit: No Status: Chronic Code(s): G40.909 - EPILEPSY, UNSP, NOT INTRACTABLE, WITHOUT STATUS EPILEPTICUS SNOMED Code(s): 413745869 Comment: likely secondary to subdural hematoma and craniotomy Not on Keppra anymore (9) Nodule of kidney Current Visit: Yes Status: Acute Code(s): N28.89 - OTHER SPECIFIED DISORDERS OF KIDNEY AND URETER SNOMED Code(s): 581154572 Comment: US when able. Status and Disposition: medicine, switch to inpatient.
[2019-06-08] MEDS ORDERED: Ondansetron INJ* 2 MG/ML VIAL IV PRN (12:32)
[2019-06-08 12:41] LABS: Magnesium 1.9 mg/dL (1.9-2.7)
[2019-06-08] MEDS: Enoxaparin(*) 40 MG/0.4 ML SYR SUBCUT SCH (16:51)
[2019-06-09] MEDS: NS 0.9% 1000 ML** 1,000 ML IV SCH ×2 (01:12→12:26)
[2019-06-09] MEDS: Pregabalin 100 mg CAP (*) PO SCH ×3 (07:44→20:47)
[2019-06-09] MEDS: Morphine INJ* 2 MG/ML 1 ML SYRINGE (TWO MG - NEW SYRINGE VERSION) IV PRN ×5 (07:45→23:28)
--- NOTE | 2019-06-09 09:25 | PN ---
Progress Note - Progress Note Date of Service: 06/09/19 Note: Surgery Progress S: feels about the same, "no worse". Still having some pain (multiple doses of MS 2 mg) but admits to pain-free intervals. No N/V. Would like to try to drink. No appetite. Colostomy has been active. She is ambulatory to the only. O: Vital Signs - 8 hr 06/09/19 06/09/19 06/09/19 03:14 07:15 07:44 Temperature 98.1 F 98.3 F Pulse Rate 95 57 Respiratory 16 16 16 Rate Blood Pressure 150/67 144/69 (mmHg) O2 Sat by Pulse 96 93 Oximetry 06/09/19 06/09/19 07:45 07:54 Temperature Pulse Rate Respiratory 16 16 Rate Blood Pressure (mmHg) O2 Sat by Pulse Oximetry Intake and Output Last 24 Hours 06/07/19 06/08/19 06/09/19 06/10/19 06:59 06:59 06:59 06:59 Intake Total 1000 0 Output Total 1025 0 Balance -25 0 Weight 183 lb 3.2 oz Intake: IVPB 1000 Oral 0 0 Output: Urine 0 Liquid Stool 350 Colostomy 675 0 Other: # Bowel Movements 0 Estimated Stool Amount Medium # Voids 0 1 Gen: lying in bed; NAD Heart: reg Lungs: clear Abd: pain when she rotates to her side; ostomy w/ some gas in bag. BS active; soft w/ mild to moderate non-localized tenderness throughout abd. No peritoneal signs. No new labs or imaging. A: pSBO; not much change in subjective pain or tenderness on exam Left adrenal nodule: CT 2013 from [place] shows the same nodule, though smaller. Low suspicion lesion (discussed w/ both patient and her daughter) which could be further investigated by dedicated CT ("adrenal mass protocol") as an outpatient. P: discussed w/ Dr. Rooney; will try clear liquids.
--- NOTE | 2019-06-09 10:51 | PN ---
Subjective Date of Service: 06/09/19 Interval History: afebrile no acute events overnight. 8/10 pain, eases a bit with the pain meds. No N/V. Tolerated jello this AM (did not worsen her pain). no chest pain. Did not see her ostomy output which was changed while she was asleep but at least gas in bag. Objective Active Medications: Enoxaparin Sodium (Lovenox(*)) 40 mg SUBCUT Q24H [facility] Last Admin: 06/08/19 16:51 Dose: 40 mg Sodium Chloride (Ns 0.9% 1000 Ml) 1,000 mls @ 75 mls/hr IV PER RATE [facility] Last Admin: 06/09/19 01:12 Dose: 75 mls/hr Morphine Sulfate (Morphine Inj (Syringe))*) 2 mg IV Q4H PRN PRN Reason: PAIN - SEVERE Last Admin: 06/09/19 07:45 Dose: 2 mg Ondansetron HCl (Zofran Inj*) 4 mg IV Q6H PRN PRN Reason: NAUSEA Pregabalin (Lyrica 100 Mg Cap (*)) 100 mg PO TID [facility] Last Admin: 06/09/19 07:44 Dose: 100 mg Vital Signs - 8 hr 06/09/19 06/09/19 06/09/19 03:14 07:15 07:44 Temperature 98.1 F 98.3 F Pulse Rate 95 90 Respiratory 16 20 16 Rate Blood Pressure 150/67 144/62 (mmHg) O2 Sat by Pulse 96 96 Oximetry 06/09/19 06/09/19 07:45 07:54 Temperature Pulse Rate Respiratory 16 16 Rate Blood Pressure (mmHg) O2 Sat by Pulse Oximetry Oxygen Devices in Use Now: None Appearance: NAD Ears/Nose/Mouth/Throat: NL Teeth, Lips, Gums Neck: NL Appearance and Movements; NL JVP Respiratory: Symmetrical Chest Expansion and Respiratory Effort Cardiovascular: NL Sounds; No Murmurs; No JVD Abdominal: - - parastomal hernia, diffuse pain and slight guarding. Extremities: No Edema Skin: No Rash or Ulcers Neurological: Alert and Oriented x 3 Nutrition: Taking PO's Result Diagrams: 06/08/19 05:09 06/08/19 05:09 Microbiology and Other Data: Microbiology 06/07/19 22:39 Blood Venous Aerobic Blood Culture - Preliminary No Growth Day 1 06/07/19 22:39 Blood Venous Anaerobic Blood Culture - Preliminary No Growth Day 1 06/07/19 21:12 Blood Venous Aerobic Blood Culture - Preliminary No Growth Day 1 06/07/19 21:12 Blood Venous Anaerobic Blood Culture - Preliminary No Growth Day 1 Assess/Plan/Problems-Billing Assessment: 73 year old female PMH CVA(2017), HTN, DMT2, traumatic SDH, seizure do, vishal' s granulmatosis, diveritculitis/osis s/p colostomy, pSBO, para-stomal hernia s/ p failed correction presenting with abdominal pain, nausea, vomiting. CT abdomen/pelvis w/ IV concerning for pSBO and left kidney and left adrenal nodules (reportedly somewhat smaller 2013) - Patient Problems (1) Partial small bowel obstruction Current Visit: Yes Status: Acute Code(s): K56.600 - PARTIAL INTESTINAL OBSTRUCTION, UNSPECIFIED TO CAUSE SNOMED Code(s): 862802932 Comment: appreciate surgical recs, diet advanced to clears liquids this AM IVF zofran prn known parastomal hernia. no nausea or vomiting but requiring frequent pain meds. (2) Adrenal nodule Current Visit: Yes Status: Acute Code(s): E27.8 - OTHER SPECIFIED DISORDERS OF ADRENAL GLAND SNOMED Code(s): 326758478 Comment: recevied records from [place] but I did not see reported mention of a smaller adrenal nodule from 2013 I don't think she would tolerate a kidney US at moment. Consider adrenal protocol CT as outpatient (3) CVA (cerebral vascular accident) Current Visit: No Status: Acute Code(s): I63.9 - CEREBRAL INFARCTION, UNSPECIFIED SNOMED Code(s): 363693549 Comment: Patient s/p left subcortical CVA on 07/23/16 holding plavix in case need ex-lap restart atorvastatin now. (4) DVT prophylaxis Current Visit: No Status: Acute Code(s): PHB4565 - SNOMED Code(s): 431805659 Comment: SQ lovenox (5) Diabetes mellitus Current Visit: No Status: Chronic Code(s): E11.9 - TYPE 2 DIABETES MELLITUS WITHOUT COMPLICATIONS SNOMED Code(s): 25405713 Comment: BS 120-170 Home metformin 500 daily held poc qachs, currently npo. but add SSI if diet advanced (6) HTN (hypertension) Current Visit: No Status: Chronic Code(s): I10 - ESSENTIAL (PRIMARY) HYPERTENSION SNOMED Code(s): 92642396 Comment: 120-150 while off her home meds of atenolol 100 daily, spironolactone 25 and furosemide 40 daily. (7) Peripheral neuropathy Current Visit: No Status: Chronic Code(s): G62.9 - POLYNEUROPATHY, UNSPECIFIED SNOMED Code(s): 767997787 Comment: Continue pregabalin. (8) Seizure disorder Current Visit: No Status: Chronic Code(s): G40.909 - EPILEPSY, UNSP, NOT INTRACTABLE, WITHOUT STATUS EPILEPTICUS SNOMED Code(s): 229887400 Comment: likely secondary to subdural hematoma and craniotomy Not on Keppra anymore (9) Nodule of kidney Current Visit: Yes Status: Acute Code(s): N28.89 - OTHER SPECIFIED DISORDERS OF KIDNEY AND URETER SNOMED Code(s): 158508104 Comment: US when able. Status and Disposition: medicine, inpatient. diet slowly advancing.
[2019-06-09] MEDS ORDERED: Dextrose 50% Syringe 50 ML* 25 GM/50 ML SYRINGE IV PUSH PRN (15:53)
[2019-06-09] MEDS: Insulin LISPRO* 1 UNITS UNIT SUBCUT SCH ×2 (16:42→20:47)
[2019-06-09] MEDS: Enoxaparin(*) 40 MG/0.4 ML SYR SUBCUT SCH (17:18)
[2019-06-09] MEDS: Atorvastatin* 40 MG TAB PO SCH (20:47)
[2019-06-10] MEDS: Morphine INJ* 2 MG/ML 1 ML SYRINGE (TWO MG - NEW SYRINGE VERSION) IV PRN ×2 (03:24→07:48)
[2019-06-10] MEDS: Insulin LISPRO* 1 UNITS UNIT SUBCUT SCH ×4 (07:23→20:16)
[2019-06-10] MEDS: Pregabalin 100 mg CAP (*) PO SCH ×3 (07:49→20:14)
--- NOTE | 2019-06-10 09:17 | PN ---
Progress Note - Progress Note Date of Service: 06/10/19 Note: Pain is minimal this morning. She did require morphine this morning. Tolerating clear liquids. Denies nausea or worsening abdominal pain after drinking. Has been out of bed to bathroom. Denies chest pain or shortness of breath. She has had less stool in the ostomy bag but has had a lot of air. Vital Signs - 12 hr Temp Pulse Resp BP Pulse Ox 06/10/19 07:56 16 06/10/19 07:49 16 06/10/19 07:48 16 06/10/19 07:15 97.4 F 75 16 157/60 99 06/10/19 04:52 16 06/10/19 03:24 18 06/10/19 03:04 97.6 F 92 18 150/71 98 06/10/19 00:28 16 06/09/19 23:28 16 06/09/19 23:12 98.3 F 87 16 167/73 98 06/09/19 22:18 18 Intake & Output 06/09/19 06/10/19 06/10/19 22:59 06:59 14:59 Intake Total 1370 0 Balance 1370 0 Intake: IV Fluids 950 NS (0.9%) 950 Oral 420 0 Other: Estimated Void Large # Voids 0 1 General: NAD, lying in bed CV: RRR Resp: CTAB Abd: Soft, mild tenderness to palpation around the ostomy. No guarding or rebound. Nondistended. Air in ostomy bag. Neuro: Alert, oriented x3. Moves all extremities equally. Psych: Normal affect. A&P 73F with SBO, resolving. -Advance to full liquids as tolerated. Recommend following full liquids then soft diet for the next week before advancing to regular diet. -Saline lock IVF. -From surgery standpoint, ready for discharge later today or tomorrow morning if tolerating full liquids and no longer requiring morphine. Consider Tylenol or oral pain medication.
[2019-06-10] MEDS ORDERED: Acetaminophen TAB* 325 MG PO PRN (11:00)
[2019-06-10] MEDS: Atenolol TAB* 50 MG PO SCH (11:24)
[2019-06-10] MEDS: Pantoprazole TAB * 40 MG TAB PO SCH (11:24)
[2019-06-10] MEDS: Clopidogrel TAB* 75 MG PO SCH (11:24)
[2019-06-10] MEDS: Spironolactone TAB* 25 MG PO SCH (11:24)
[2019-06-10] MEDS: Levothyroxine TAB* 75 MCG TAB PO SCH (11:24)
[2019-06-10] MEDS: oxyCODONE TAB* 5 MG TAB PO PRN ×2 (11:35→17:48)
--- NOTE | 2019-06-10 12:34 | PN ---
Subjective Date of Service: 06/10/19 Interval History: afebrile, no acute events overnight. advanced to full liquid diet but has not had lunch yet. abdominal pain is improved, no nausea or vomiting. did get IV morphine 8pm, 11pm , 3am, 7am(for 09/23) Does not think she has had any ostomy output "in a couple days" denies chest pain, f/c, BUNN, rash. Objective Active Medications: Acetaminophen (Tylenol Tab*) 650 mg PO Q6H PRN PRN Reason: PAIN - MILD Atenolol (Tenormin Tab*) 100 mg PO DAILY [facility] Last Admin: 06/10/19 11:24 Dose: 100 mg Atorvastatin Calcium (Lipitor*) 40 mg PO BEDTIME [facility] Last Admin: 06/09/19 20:47 Dose: 40 mg Clopidogrel Bisulfate (Plavix Tab*) 75 mg PO DAILY [facility] Last Admin: 06/10/19 11:24 Dose: 75 mg Dextrose (D50w Syringe 50 Ml*) 12.5 gm IV PUSH .FOR FS < 60 - SS PRN PRN Reason: FS < 60 Enoxaparin Sodium (Lovenox(*)) 40 mg SUBCUT Q24H [facility] Last Admin: 06/09/19 17:18 Dose: 40 mg Sodium Chloride (Ns 0.9% 1000 Ml) 1,000 mls @ 75 mls/hr IV PER RATE [facility] Last Admin: 06/09/19 12:26 Dose: 75 mls/hr Insulin Human Lispro (Humalog*) 0 units SUBCUT ACHS [facility]; Protocol Last Admin: 06/10/19 11:35 Dose: 2 unit Levothyroxine Sodium (Synthroid Tab*) 75 mcg PO DAILY@0600 [facility] Last Admin: 06/10/19 11:24 Dose: 75 mcg Ondansetron HCl (Zofran Inj*) 4 mg IV Q6H PRN PRN Reason: NAUSEA Oxycodone HCl (Roxycodone Tab*) 5 mg PO Q6H PRN PRN Reason: PAIN - SEVERE Last Admin: 06/10/19 11:35 Dose: 5 mg Pantoprazole Sodium (Protonix Tab*) 40 mg PO DAILY [facility] Last Admin: 06/10/19 11:24 Dose: 40 mg Pregabalin (Lyrica 100 Mg Cap (*)) 100 mg PO TID [facility] Last Admin: 06/10/19 07:49 Dose: 100 mg Spironolactone (Aldactone Tab*) 25 mg PO DAILY [facility] Last Admin: 06/10/19 11:24 Dose: 25 mg Vital Signs - 8 hr 06/10/19 06/10/19 06/10/19 04:52 07:15 07:48 Temperature 97.4 F Pulse Rate 75 Respiratory 16 16 16 Rate Blood Pressure 157/60 (mmHg) O2 Sat by Pulse 99 Oximetry 06/10/19 06/10/19 06/10/19 07:49 07:56 09:30 Temperature Pulse Rate Respiratory 16 16 16 Rate Blood Pressure (mmHg) O2 Sat by Pulse Oximetry 06/10/19 06/10/19 11:15 11:35 Temperature 98.2 F Pulse Rate 76 Respiratory 17 16 Rate Blood Pressure 150/62 (mmHg) O2 Sat by Pulse 99 Oximetry Oxygen Devices in Use Now: None Appearance: NAD Eyes: No Scleral Icterus Ears/Nose/Mouth/Throat: NL Teeth, Lips, Gums Neck: NL Appearance and Movements; NL JVP, Trachea Midline Respiratory: Symmetrical Chest Expansion and Respiratory Effort, Clear to Auscultation Cardiovascular: NL Sounds; No Murmurs; No JVD, RRR Abdominal: - - opaque ostomy in right abdomen, slight tenderness in epigastric and RUQ. on guarding or rebound. Extremities: No Edema Skin: No Rash or Ulcers Neurological: Alert and Oriented x 3 Nutrition: Taking PO's Result Diagrams: 06/08/19 05:09 06/08/19 05:09 Additional Lab and Data: Laboratory Results - last 24 hr 06/09/19 06/09/19 06/10/19 16:39 20:35 07:20 POC Glucose (mg/dL) 114 H 140 H 127 H 06/10/19 11:24 POC Glucose (mg/dL) 158 H Microbiology and Other Data: Microbiology 06/07/19 22:39 Blood Venous Aerobic Blood Culture - Preliminary No Growth Day 2 06/07/19 22:39 Blood Venous Anaerobic Blood Culture - Preliminary No Growth Day 2 06/07/19 21:12 Blood Venous Aerobic Blood Culture - Preliminary No Growth Day 2 06/07/19 21:12 Blood Venous Anaerobic Blood Culture - Preliminary No Growth Day 2 Assess/Plan/Problems-Billing Assessment: 73 year old female PMH CVA(2017), HTN, DMT2, traumatic SDH, seizure do, vishal' s granulmatosis, diveritculitis/osis s/p colostomy, pSBO, para-stomal hernia s/ p failed correction presenting with abdominal pain, nausea, vomiting. CT abdomen/pelvis w/ IV concerning for pSBO and left kidney and left adrenal nodules (reportedly somewhat smaller 2013) - Patient Problems (1) Partial small bowel obstruction Current Visit: Yes Status: Acute Code(s): K56.600 - PARTIAL INTESTINAL OBSTRUCTION, UNSPECIFIED TO CAUSE SNOMED Code(s): 545645212 Comment: appreciate surgical recs, diet advanced to full liquids for lunch. IVF zofran prn known parastomal hernia. no nausea or vomiting. swith to oral pain meds. (2) Adrenal nodule Current Visit: Yes Status: Acute Code(s): E27.8 - OTHER SPECIFIED DISORDERS OF ADRENAL GLAND SNOMED Code(s): 590641216 Comment: recevied records from [place] but I did not see reported mention of a smaller adrenal nodule from 2013 I don't think she would tolerate a kidney US at moment. Consider adrenal protocol CT as outpatient (3) CVA (cerebral vascular accident) Current Visit: No Status: Acute Code(s): I63.9 - CEREBRAL INFARCTION, UNSPECIFIED SNOMED Code(s): 465730826 Comment: Patient s/p left subcortical CVA on 07/23/16 restart plavix as per surgery recommendation as they have no plans to take to OR. continue atorvastatin now. (4) DVT prophylaxis Current Visit: No Status: Acute Code(s): ZBL5806 - SNOMED Code(s): 015066384 Comment: SQ lovenox (5) Diabetes mellitus Current Visit: No Status: Chronic Code(s): E11.9 - TYPE 2 DIABETES MELLITUS WITHOUT COMPLICATIONS SNOMED Code(s): 36871214 Comment: BS 127-158 Home metformin 500 daily held glucose qachs with lispro ssi (6) HTN (hypertension) Current Visit: No Status: Chronic Code(s): I10 - ESSENTIAL (PRIMARY) HYPERTENSION SNOMED Code(s): 93764465 Comment: as high as 167 while off her home meds of atenolol 100 daily, spironolactone 25 and furosemide 40 daily. Restart atenolol and spironolactone. (7) Peripheral neuropathy Current Visit: No Status: Chronic Code(s): G62.9 - POLYNEUROPATHY, UNSPECIFIED SNOMED Code(s): 815597440 Comment: Continue pregabalin. (8) Seizure disorder Current Visit: No Status: Chronic Code(s): G40.909 - EPILEPSY, UNSP, NOT INTRACTABLE, WITHOUT STATUS EPILEPTICUS SNOMED Code(s): 454081142 Comment: likely secondary to subdural hematoma and craniotomy Not on Keppra anymore (9) Nodule of kidney Current Visit: Yes Status: Acute Code(s): N28.89 - OTHER SPECIFIED DISORDERS OF KIDNEY AND URETER SNOMED Code(s): 506816224 Comment: US when able. Status and Disposition: medicine, inpatient. diet slowly advancing.
[2019-06-10] MEDS: NS 0.9% 1000 ML** 1,000 ML IV SCH (15:06)
[2019-06-10] MEDS: Enoxaparin(*) 40 MG/0.4 ML SYR SUBCUT SCH (17:48)
[2019-06-10] MEDS: Atorvastatin* 40 MG TAB PO SCH (20:14)
[2019-06-11] MEDS: oxyCODONE TAB* 5 MG TAB PO PRN ×2 (00:47→08:01)
[2019-06-11] MEDS: Levothyroxine TAB* 75 MCG TAB PO SCH (07:24)
[2019-06-11] MEDS: Insulin LISPRO* 1 UNITS UNIT SUBCUT SCH (07:59)
[2019-06-11] MEDS: Pregabalin 100 mg CAP (*) PO SCH (08:00)
[2019-06-11] MEDS: Clopidogrel TAB* 75 MG PO SCH (08:00)
[2019-06-11] MEDS: Spironolactone TAB* 25 MG PO SCH (08:01)
[2019-06-11] MEDS: Pantoprazole TAB * 40 MG TAB PO SCH (08:01)
[2019-06-11] MEDS: Atenolol TAB* 50 MG PO SCH (08:01)
[2019-06-11] MEDS: NS 0.9% 1000 ML** 1,000 ML IV SCH (08:01)
--- NOTE | 2019-06-11 09:18 | PN ---
Progress Note - Progress Note Date of Service: 06/11/19 Note: Reports abdominal pain has more or less resolved. She took Percocet once yesterday only. She is tolerating full liquids. Continues to have flatus in ostomy bag but no stool in a couple of days. Denies chest pain or SOB. Vital Signs - 12 hr Temp Pulse Resp BP Pulse Ox 06/11/19 08:01 16 06/11/19 08:00 16 06/11/19 07:23 16 06/11/19 03:07 97.7 F 69 19 135/70 98 06/11/19 00:47 16 06/10/19 23:03 98.2 F 70 19 154/58 98 06/10/19 23:00 16 Intake & Output 06/10/19 06/11/19 06/11/19 22:59 06:59 14:59 Intake Total 2700 1120 200 Balance 2700 1120 200 Intake: IV Fluids 2100 880 NS (0.9%) 2100 880 Oral 600 240 200 Other: Estimated Void Medium # Bowel Movements 0 # Voids 1 1 General: NAD Abd: Soft, nondistended, mild tenderness to deep palpation in RLQ and around colostomy. Large parastomal hernia unchanged. Neuro: Alert, oriented x3. Moves all extremities equally. A&P 73F with SBO, resolved. -Full liquids. Encouraged patient to remain on full liquids for next couple of days at least then advance to soft diet. -Milk of mag prn -From surgical standpoint, ready for discharge to home.
[2019-06-11 13:12] VITALS: BP 165/67
--- NOTE | 2019-06-12 15:55 | DS ---
CC: Dr. Og in [place]; Dr. Hilary Rooney at [facility] * DISCHARGE SUMMARY: DATE OF ADMISSION: 06/07/19 DATE OF DISCHARGE: 06/11/19 PRIMARY DIAGNOSIS: Partial small bowel obstruction, managed conservatively. SECONDARY DIAGNOSES: 1. Colostomy, present for 10 years following multiple surgeries for diverticulitis. 2. Hypertension. 3. Hyperlipidemia. 4. Type 2 diabetes. 5. Gastroesophageal reflux disease with hiatal hernia. 6. Peripheral neuropathy. 7. Osteoporosis. 8. History of prior subdural hematoma requiring a craniotomy. 9. Left subcortical stroke July of 2016. 10. History of seizures. 11. History of alcohol abuse and recovery for 12 years. 12. Incidental findings of left kidney nodule and left adrenal nodule that had progressed from previous. 13. History of Renetta's granulomatosis. MEDICATIONS ON DISCHARGE: 1. Atenolol 100 mg p.o. daily. 2. Atorvastatin 40 mg p.o. q.p.m. 3. Calcium carbonate 600 mg p.o. t.i.d. 4. Plavix 75 mg p.o. daily. 5. Vitamin B12 tablet 500 mcg p.o. daily. 6. Levothyroxine 75 mcg p.o. daily. 7. Metformin 500 mg p.o. daily. 8. Omeprazole 20 mg p.o. b.i.d. 9. Potassium chloride 20 mEq daily. 10. Lyrica 100 mg t.i.d. 11. Spironolactone 25 mg p.o. daily. 12. Acetaminophen 650 mg p.o. q.6 hours p.r.n. [id number] pain. CONSULTATIONS: JAELYN Dominique, and Hilary Rooney MD, of Surgery. PROCEDURES: None. COMPLICATIONS: None. HOSPITAL COURSE: A 73-year-old woman with the medical problems as above, who presented with abdominal pain, nausea, and vomiting. CT of abdomen and pelvis on admission showed distention and mild dilation of the small bowel without clear transition point. There was a small amount of interloop fluid, which may indicate internal herniation. There was also a large parastomal hernia containing loops of small bowel and large bowel as well as possibly a solid nodule in the upper pole of the left kidney and a new left adrenal nodule concerning for metastatic disease to the adrenal glands. The patient's presenting laboratory test showed a white count of 18.2, which fell to 9.4 of the day after. She was not anemic. She had normal electrolytes. Initial presentation lactic acid was 2.8, which fell to 1.9 upon repeat testing. She did develop some hypokalemia on the day after admission, it was 3.4, which was supplemented. Blood cultures x2 were negative. The patient was admitted from management of small bowel obstruction. She did not require surgery or NG tube placement. She was followed surgical team as well as medical team, and on the day of discharge, she was tolerating full liquids and had air movement through her colostomy. Her abdominal pain had resolved. The patient agreed to go home with continuing a full liquid diet. When she started to have bowel movements, she could start to have a low residual bland diet including scrambled egg, macaroni and cheese, and applesauce, then she can advance diet as tolerated. DISPOSITION: Home. She does not live alone. DIET: Full liquid, diabetic. ACTIVITY: As tolerated. STATUS: Inpatient. CONDITION: Stable. FOLLOWUP: Followup with primary care doctor is scheduled for 06/18/19 at 10:10 a.m. She should also follow up within 1 to [address] Rooney of Surgery. TIME SPENT: I spent more than 35 minutes with the patient on the day of discharge in completing necessary paperwork. [id number]/[facility] #: [id number] MTDD
== END 2019-06-11 11:50 | disposition home or self-care (01) | DRG 389 ==
LOC: ED 09:23 → MED 16:06 → UNDOADMOB 16:06 → OBSVTOIN 18:00 → INTOOBSV 06-08 12:39 → OBSVTOIN 06-08 12:39
PROVIDERS: ADMIT Hospitalist; ATTEND Internal Medicine
DX: K56.600 Partial intestinal obstruction, unspecified as to cause (principal); M31.30 Wegener's granulomatosis without renal involvement; E11.42 Type 2 diabetes mellitus with diabetic polyneuropathy; I10 Essential (primary) hypertension; K21.9 Gastro-esophageal reflux disease without esophagitis; K44.9 Diaphragmatic hernia without obstruction or gangrene; M81.0 Age-related osteoporosis without current pathological fracture; Z66 Do not resuscitate; G40.909 Epilepsy, unspecified, not intractable, without status epilepticus; K43.5 Parastomal hernia without obstruction or gangrene; N28.89 Other specified disorders of kidney and ureter; E27.9 Disorder of adrenal gland, unspecified; E78.5 Hyperlipidemia, unspecified; E87.6 Hypokalemia; D72.829 Elevated white blood cell count, unspecified; F10.21 Alcohol dependence, in remission; E66.9 Obesity, unspecified; Z96.641 Presence of right artificial hip joint; Z68.30 Body mass index [BMI] 30.0-30.9, adult; Z93.3 Colostomy status; Z86.73 Personal history of transient ischemic attack (TIA), and cerebral infarction without residual deficits; Z79.84 Long term (current) use of oral hypoglycemic drugs; Z79.1 Long term (current) use of non-steroidal anti-inflammatories (NSAID); Z79.899 Other long term (current) drug therapy; Z88.8 Allergy status to other drugs, medicaments and biological substances; Z82.49 Family history of ischemic heart disease and other diseases of the circulatory system; Z83.3 Family history of diabetes mellitus; Z80.0 Family history of malignant neoplasm of digestive organs
CPT/HCPCS: 36415; 71045; 74019; 74177; 80048; 80053; 83605; 83690; 83735; 85025; 86140; 87040; 93005; 96361; 96374; 96375; 96376; 99284; A9270-GY; J1650; J2270; J2405; Q9967

== ENCOUNTER 2021-08-03 12:14 | Inpatient (IN) ==
[2021-08-03] MEDS: NS 0.9% 1000 ml BAG 1,000 ML IV ONE ×2 (13:17→13:51)
[2021-08-03 13:20] LABS: ABS Basophils 0.1 10^3/ul (0-0.2); ABS Lymphocytes 1.5 10^3/ul (1.0-4.8); ABS Monocytes 0.4 10^3/ul (0-0.8); Eosinophil % 0.2 %; Hematocrit 39 % (35-47); Hemoglobin 12.1 g/dL (12.0-16.0); Lymphocyte % 13.6 %; Mean Corpuscular HGB Conc 31 g/dL (31-36); Mean Corpuscular Hemoglobin 26 pg (27-31); Mean Corpuscular Volume 82 fL (80-97); Mean Platelet Volume 8.9 fL (7.4-10.4); Platelet Count 429 10^3/uL (150-450); Red Blood Count 4.73 10^6 /uL (3.70-4.87); Red Cell Distribution Width 16 % (10-15)
[2021-08-03 14:01] LABS: Albumin 4.2 g/dL (3.2-5.2); Albumin/Globulin Ratio 1.4 (1-3); C Reactive Protein 2.99 mg/L (<8.01); Calcium 9.7 mg/dL (8.6-10.3); Potassium 4.4 mmol/L (3.5-5.0); Total Bilirubin 0.5 mg/dL (0.2-1.0); Total Protein 7.2 g/dL (6.4-8.9); eGFR CKD-EPI 44.1 (>60)
[2021-08-03 15:41] LABS: Urine Appearance Turbid; Urine Bilirubin Negative (Negative); Urine Blood Negative (Negative); Urine Color Yellow; Urine Glucose Negative (Negative); Urine Ketones 1+ (Negative); Urine Nitrite Negative (Negative); Urine Protein 1+(30 mg/dL) (Negative); Urine Specific Gravity 1.032 (1.002-1.030); Urine Urobilinogen Negative (Negative)
[2021-08-03 15:51] LABS: Urine Bacteria 1+ (Absent); Urine Red Blood Cell 3+(>10/hpf) (Absent); Urine Squamous Epithelial Cell Present (Absent); Urine Transitional Epithelial Present (Absent); Urine White Blood Cell 3+(>20/hpf) (Absent)
[2021-08-03] MEDS ORDERED: cefTRIAXone 1 gm/50 mL D5W 1 GM/50 ML BAG IV ONE (15:53)
[2021-08-03] MEDS ORDERED: Al Hydrox/Mg Hydrox/Simet LIQ 30 ML UDC PO ONE (16:09)
[2021-08-03] MEDS ORDERED: Metoclopramide 5 MG/ML VIAL (10 mg) IV ONE (16:41)
[2021-08-03] MEDS ORDERED: Ondansetron ODT 4 mg TAB 4 MG TAB SL PRN (20:53)
[2021-08-03 22:57] LABS: Magnesium 2.2 mg/dL (1.9-2.7)
[2021-08-03 23:03] LABS: Phosphorus 2.9 mg/dL (2.5-5.0)
[2021-08-03] MEDS: Calcium (OSCAL) 500 mg TAB PO SCH (23:19)
[2021-08-03] MEDS: Enoxaparin 40 MG/0.4 ML SYR SUBCUT SCH (23:20)
[2021-08-04] MEDS ORDERED: Dextrose 50% Syringe 50 ml 25 GM/50 ML SYRINGE IV PUSH PRN (00:02)
[2021-08-04 06:48] LABS: ABS Basophils 0.1 10^3/ul (0-0.2); ABS Lymphocytes 2.1 10^3/ul (1.0-4.8); ABS Monocytes 0.4 10^3/ul (0-0.8); ABS Neutrophils 9.4 10^3/ul (1.5-7.7); Eosinophil % 0.1 %; Hematocrit 35 % (35-47); Hemoglobin 11.3 g/dL (12.0-16.0); Lymphocyte % 17.7 %; Mean Corpuscular HGB Conc 33 g/dL (31-36); Mean Corpuscular Hemoglobin 27 pg (27-31); Mean Corpuscular Volume 82 fL (80-97); Platelet Count 409 10^3/uL (150-450); Red Blood Count 4.24 10^6 /uL (3.70-4.87); Red Cell Distribution Width 16 % (10-15)
[2021-08-04 07:01] LABS: Calcium 9.5 mg/dL (8.6-10.3); Magnesium 2.3 mg/dL (1.9-2.7); Potassium 4.2 mmol/L (3.5-5.0); eGFR CKD-EPI 50.2 (>60)
[2021-08-04] MEDS: Calcium (OSCAL) 500 mg TAB PO SCH ×3 (10:09→21:22)
[2021-08-04] MEDS: Potassium Chlor 10 meq TAB PO SCH (10:09)
[2021-08-04] MEDS: cefTRIAXone 1 gm/50 mL D5W 1 GM/50 ML BAG IV SCH (16:48)
[2021-08-04] MEDS: Enoxaparin 40 MG/0.4 ML SYR SUBCUT SCH (21:22)
[2021-08-05] MEDS: Calcium (OSCAL) 500 mg TAB PO SCH ×3 (09:05→22:05)
[2021-08-05] MEDS: Potassium Chlor 10 meq TAB PO SCH (09:05)
[2021-08-05 10:55] LABS: ABS Basophils 0.1 10^3/ul (0-0.2); ABS Lymphocytes 1.4 10^3/ul (1.0-4.8); ABS Monocytes 0.4 10^3/ul (0-0.8); ABS Neutrophils 6.4 10^3/ul (1.5-7.7); Eosinophil % 0.5 %; Hematocrit 32 % (35-47); Hemoglobin 10.3 g/dL (12.0-16.0); Lymphocyte % 17.3 %; Mean Corpuscular HGB Conc 32 g/dL (31-36); Mean Corpuscular Hemoglobin 26 pg (27-31); Mean Corpuscular Volume 83 fL (80-97); Nucleated Red Blood Cells % 0.1; Platelet Count 338 10^3/uL (150-450); Red Blood Count 3.92 10^6 /uL (3.70-4.87); Red Cell Distribution Width 16 % (10-15); White Blood Count 8.3 10^3/uL (3.5-10.8)
[2021-08-05 11:17] LABS: Calcium 9.4 mg/dL (8.6-10.3); Potassium 4.9 mmol/L (3.5-5.0)
[2021-08-05] MEDS: cefTRIAXone 1 gm/50 mL D5W 1 GM/50 ML BAG IV SCH (17:21)
[2021-08-05 19:44] LABS: TSH Ultra Thyroid Stim Horm 2.17 mcIU/mL (0.34-5.60)
[2021-08-05] MEDS: Enoxaparin 40 MG/0.4 ML SYR SUBCUT SCH (22:04)
[2021-08-06 06:01] LABS: ABS Basophils 0.1 10^3/ul (0-0.2); ABS Eosinophils 0.1 10^3/ul (0-0.6); ABS Lymphocytes 1.7 10^3/ul (1.0-4.8); ABS Monocytes 0.5 10^3/ul (0-0.8); ABS Neutrophils 4.4 10^3/ul (1.5-7.7); Eosinophil % 1.1 %; Hematocrit 31 % (35-47); Lymphocyte % 25.6 %; Mean Corpuscular HGB Conc 32 g/dL (31-36); Mean Corpuscular Hemoglobin 27 pg (27-31); Mean Corpuscular Volume 83 fL (80-97); Mean Platelet Volume 8.7 fL (7.4-10.4); Platelet Count 271 10^3/uL (150-450); Red Blood Count 3.76 10^6 /uL (3.70-4.87); Red Cell Distribution Width 16 % (10-15); White Blood Count 6.7 10^3/uL (3.5-10.8)
[2021-08-06 06:31] LABS: Calcium 9.4 mg/dL (8.6-10.3); Magnesium 1.9 mg/dL (1.9-2.7); Potassium 4.2 mmol/L (3.5-5.0); eGFR CKD-EPI 55.4 (>60)
[2021-08-06 07:18] VITALS: BP 136/60
[2021-08-06] MEDS: Potassium Chlor 10 meq TAB PO SCH (08:48)
[2021-08-06] MEDS: Calcium (OSCAL) 500 mg TAB PO SCH (08:48)
== END 2021-08-06 11:35 | disposition home or self-care (01) | DRG 690 ==
LOC: ED 12:14 → EDHOLD 19:55 → SUATTDRO 19:55 → MED 22:29
PROVIDERS: ADMIT Internal Medicine; ATTEND Student in an Organized Health Care Education/Training Program